=== PATIENT | female | born 1960 | race Caucasian/White ===

== ENCOUNTER 2019-05-20 13:18 | Outpatient (CLI) | payer BC ==
[2019-05-20 13:56] LABS: BASOPHILS # (AUTO) 0.1 10^3/uL (0.0-0.1); BASOPHILS % (AUTO) 0.6 %; EOSINOPHILS % (AUTO) 0.2 %; HGB - HEMOGLOBIN 10.7 g/dL (12.0-16.0); LYMPHOCYTES # (AUTO) 0.9 10^3/uL (1.5-3.5); LYMPHOCYTES % (AUTO) 6.8 %; MEAN CORPUSCULAR HEMOGLOBIN 30.5 pg (27.0-31.0); MEAN CORPUSCULAR VOLUME 95.2 fL (81.0-99.0); MEAN PLATELET VOLUME 10.6 fL (7.9-10.8); MONOCYTES # (AUTO) 1.3 10^3/uL (0.0-1.0); MONOCYTES % (AUTO) 9.9 %; NEUTROPHILS # (AUTO) 10.2 10^3/uL (1.5-6.6); NEUTROPHILS % (AUTO) 79.2 %; PLT - PLATELET COUNT 312 10^3/uL (130-450); RED BLOOD COUNT 3.51 10^6/uL (4.20-5.40); RED CELL DISTRIBUTION WIDTH 17.8 % (12.0-15.0); WHITE BLOOD COUNT 12.9 x10^3/uL (4.8-10.8)
[2019-05-20 14:13] LABS: ALBUMIN 1.9 g/dL (3.2-5.5); ALBUMIN/GLOBULIN RATIO 0.5 (1.0-2.2); BILIRUBIN,TOTAL 0.3 mg/dL (0.2-1.0); CALCIUM 8.3 mg/dL (8.5-10.3); CREATININE 0.6 mg/dL (0.4-1.0); CRP - C-REACTIVE PROTEIN 13.2 mg/dL (0-1.0); MAGNESIUM 2.1 mg/dL (1.7-2.8); PHOSPHORUS 3.6 mg/dL (2.5-4.6); TOTAL PROTEIN 6.1 g/dL (6.7-8.2)
[2019-05-20 15:01] LABS: FREE T4 (FREE THYROXINE) 1.02 ng/dL (0.58-1.64)
[2019-05-23 16:44] LABS: COPPER 114 mcg/dL (70-175)
== END 2019-05-20 13:19 | disposition home or self-care (01) ==
LOC: LAB 13:18
PROVIDERS: ATTEND Family Medicine
DX: C56.9 Malignant neoplasm of unspecified ovary (principal); E43 Unspecified severe protein-calorie malnutrition; R18.0 Malignant ascites; K56.699 Other intestinal obstruction unspecified as to partial versus complete obstruction
CPT/HCPCS: 36415; 80053; 82390; 82525; 83735; 84100; 84134; 84255; 84439; 84443; 84478; 84630; 85025; 86140

== ENCOUNTER 2019-05-21 11:19 | Outpatient (CLI) | payer BC ==
--- NOTE | 2019-05-21 13:59 | CONSULTATION NOTE ---
Palliative Care Consultation - Referral Referring Provider: Dr. Hakan Copeland Time of Visit: [id number] Referral setting: [facility] [place] Referral Reason: Met Ovarian CA/Symptom Management/Goals of care - Information Sources Records reviewed: Previous records reviewed History/Review of Systems obtained from: Patient Exam limitations: No limitations - History of Present Illness Brief History of Present Illness: This is a 56-year-old woman who had a series of unfortunate events, and presents with a complicated history. She reports 6 to 8 months of severe abdominal distention and ascites, from her description. She was following up on the because she had significant pressure she had attributed it to her liver and "womens' hormones" or menopause. She was to be getting a work-up, and ended up being admitted to [facility] 03/21/2019 with numbness and pain of her left hand and forearm and diagnosed with an arterial thrombus. During her hospitalization she initially had an embolectomy on 03/21/2019, but later with ongoing complications ended up with a amputation. During her work-up, a CT scan was done and showed a large 18 cm mass in her lower pelvis, with extensive abdominal carcinomatosis, for which she was started on neoadjuvant treatment. Her first dose was on 04/16/2019 with dose dense carboplatinum and Taxol. Unfortunately she has had ongoing symptoms regarding her bowel obstruction from abdominal carcinomatosis, recurrent ascites, as well as a mass compressing mid right ureter causing some hydronephrosis. She was started on TPN, with the goal to improve her nutritional status, if she were to have a good response to her treatment, she would be reassessed for optimal surgical debulking. Patient has had ongoing anemia, fluctuating electrolyte abnormalities, being modified by TPN on a regular basis. She has high symptom burden, in the context of severe vomiting, she has only vague nausea. She attributes this to her obstructive symptoms, but does vomit every few hours is triggered by talking, and worsens with increasing ascites. She was most recently tapped on 05/18, because of her ongoing nausea and vomiting which is been persistent over the last several weeks, they kept her overnight. She reports at that point in time they did remove 3 L, but have removed as much as 8 or 9. She is scheduled for a paracentesis again on 05/30. The hope is the chemotherapy will work and this will decrease her need for this which has been weekly. She reports she has tried multiple different antiemetics without any effect. It is more mechanical in nature, easily triggered. She reports she is vomits up pills most times, sometimes she keeps things down for a few hours. She has had maybe 1 or 2 good days in the last 2 weeks. She reports a sore scratchy mouth, phlegm going down her throat. And on examination does have oral candidiasis.The other thing that she has a severe GERD, reports this sometimes triggers her vomiting. On discharge she says she was "given a medication" prescription and that was $6200. I see liquid carafate on RX pharmacy list, I am guessing that is what it was. Given that she is recurrently vomiting, will see if famotidine it can be added to her TPN for comfort as is vomiting up medications. Patient does get short of breath, this worsens with increasing ascites. She modifies her activity with this. She denies any choking or aspiration risk at this point in time. She does have diminished breath sounds. Patient's pain actually is mostly in her amputated arm, she has a phantom limb pain, does intermittently use the gabapentin. If it is too bad she will use the hydromorphone, she is only using maybe 1 or 2 at the most in a day. She says it does take the edge off, but is not severely problematic. She reports that hydromorphone really does not help with abdominal pressure and discomfort, we did discuss other options as far as comfort at this point in time she is not interested in adding more medications nor opioids. Patient's past medical history includes malnutrition, alcoholic cirrhosis, left hand amputation, alcohol abuse history with remission. She also has a history of smoking, has given that up recently. 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 Shane does have a business he needs to attend to, but has been the primary caregiver her biggest worry is about his caregiver fatigue and needing increased assistance. He is managing the TPN, and helping her with appointments. There is a [place] PES application in place, as well as her understanding SSI her application has been done. 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 Family History - Family History Family History: Mother: , Cancer (unknown origin/ at 38), Father: Alive and Well, Sister: Alive and Well, Brother: Alive and Well Medications/Allergies - Medications Home Medications: Ambulatory Orders Medication Instructions Recorded Confirmed Furosemide [Lasix] 40 mg PO DAILY 05/20/19 05/22/19 Gabapentin [Gralise] 300 mg PO TID PRN MDD not using 05/20/19 05/22/19 consistently HYDROmorphone [Dilaudid] 2 - 4 mg PO TID PRN 05/20/19 05/22/19 Rivaroxaban [Xarelto] 15 mg PO DAILY 05/20/19 05/22/19 Spironolactone [Aldactone] 50 mg PO DAILY 05/20/19 05/22/19 Fluconazole [Diflucan] 100 mg PO .Q2 DAY MDD 3 tabs 05/22/19 05/22/19 Naloxone HCl [Narcan] 1 spray ELIAN DAILY PRN 05/22/19 05/22/19 Nystatin 5 ml PO QID MDD 14 days 05/22/19 05/22/19 Ondansetron [Ondansetron Odt] 4 mg PO Q6HR PRN 05/22/19 05/22/19 Prochlorperazine Maleate 10 mg PO Q6HR PRN 05/22/19 05/22/19 polyethylene glycoL 3350 [Miralax] 17 gm PO DAILY 05/22/19 05/22/19 - Allergies Allergies/Adverse Reactions: Allergies Allergy/AdvReac Type Severity Reaction Status Date / Time No Known Drug Allergies Allergy Verified 05/23/19 05:32 Review of Systems - Constitutional Constitutional: reports: Fatigue, Other. denies: Fever, Chills - Ears, Nose & Throat Ears, Nose & Throat: reports: Sore throat, Hoarseness, Dental decay, Dry mouth - Cardiovascular Cardiovascular: reports: Edema, Lightheadedness, Exertional dyspnea, Decr. exercise tolerance, Orthopnea - Respiratory Respiratory: reports: SOB at rest, SOB with exertion. denies: Cough, Wheezing - Gastrointestinal Gastrointestinal: reports: Abdominal pain, Abdominal distention, Diarrhea, Vomiting (see HPI), Reflux/heartburn (severe; nothing has helped), Bloating, Other (attempts clear liquids and jello) - Genitourinary Genitourinary: reports: Frequency - Musculoskeletal Musculoskeletal: reports: Muscle aches, Stiffness, Muscle weakness, Transfer issues - Integumentary Integumentary: reports: Pruritis, Dryness, Nail changes, Hair changes - Neurological Neurological: reports: General weakness, Dizziness - Psychiatric Psychiatric: reports: Depression, Anxiety - Hematologic/Lymphatic Hematologic/Lymphatic: reports: Anemia, Recurrent infections (hosp record has spontaneious bacterial peritonitis in hx) - All Other Systems All Other Systems: reports: Reviewed and negative Physical Exam - Vital Signs Temperature: 36.5 C Pulse Rate: 122 Respiratory Rate: 20 Blood Pressure: 153/63 - Physical Exam General Appearance: positive: Alert, Mild distress (frequent vomiting through infusion) Eyes Bilateral: positive: Normal inspection, No scleral icterus ENT: positive: Oral lesions (white patches on tongue and buccally) Neck: positive: Trachea midline Cardiovascular: positive: Tachycardia Respiratory: positive: Diminished in bases. negative: No respiratory distress (mild breathlessness with conversation), Wheezes Abdomen: positive: Tenderness, Distended, Taut, Obese Skin: positive: Pallor, Dryness, Pressure wound (documented Stage II by ) Extremities: positive: Pedal edema (3-4+ bilat to knees) Neurologic/Psychiatric: positive: Oriented x3, Weakness, Depressed mood/affect, Flat affect Palliative Care - POLST Patient has POLST: No Pain: Pain unchanged, Location (phantom pain left arm amputation; generlized pressure and discomfort abdominal pressure) Tiredness/Fatigue: Severe (7-10) Drowsiness/Sedation: Severe (7-10) Nausea: Moderate (4-6), With vomiting Anorexia: Severe (7-10) Dyspnea: Moderate (4-6) Depression: Mild (1-3) Anxiety: Severe (7-10) Feelings of wellbeing/Perceived Quality of Life: Poor, Worsening Sleep: Variable sleep pattern Performance Status: Patient reports significant functional decline. Is sedentary spends most of her time in the bed, she can ambulate short distances in her trailer. Otherwise dependent on the wheelchair because of dyspnea and lower extremity weakness. She has been seen by home health, currently too weak to take on any activity program, hoping her symptoms to be better controlled to progress. - Palliative Care Discussion: Patient does seem to understand the seriousness of her illness, she feels like it had just been her arm she would have "just had to deal". She is to receive aggressive treatment, with the hopes to control the ascites, and that she would be a candidate in the future for debulking surgery. Her goal is hoping for overall improved health, currently she has severely high symptom burden, and is very much worried about her friend and partner Shane. She says they have done her advanced care documents, when she was seen at [facility]. She does not have access to them but did make Shane her D POA. [place] she [place] but is able to provide some support. It has been overwhelming, particularly with the prolonged hospitalization, she has been in and out of ED's, and has found all this not only to be physically but emotionally exhausting. Reviewed the role of palliative care, unfortunately her partner is not able to be present for the visit today. Results - Lab Results Lab results reviewed: Yes Lab and Imaging Results: Patient still presents with anemia at 10.7 hemoglobin 30.3 0.4 hematocrit; albumin is 1.9; prealbumin 11; WBC elevated at 12.9 Impression and Recommendations - Palliative Care Impression: This is a 58-year-old woman who presents with advanced ovarian cancer mullerian origin, currently not a surgical candidate. She will be receiving weekly chemotherapy, and continue support with TPN. She presents with high symptom burden of nausea, vomiting, pain, fatigue, anxiety, recurrent ascites, and poor quality of life. Palliative care to provide support for pain and symptom management and anticipatory guidance. Recommendations/Counseling Done: 1. Nausea and vomiting. This is multifactorial in origin, most specific to her bowel obstruction, worsening with worsening ascites. Patient does attempt to take sips of fluid, and clear liquid diet, with often resulting vomiting. She is vomiting up most her pills consistently, and identifies her GERD as most problematic. Call to [facility], they can add famotidine to her solution, this will provide her the most consistent relief. She has tried multiple antiemetics with no improvement. At this point goal is hoping for the best in the context with decreased tumor burden, will have less obstructive symptoms and ascites will improve. 2. Oral candidiasis. This is adding also to source of discomfort. Ordered nystatin 5 mils 4 times daily, swish and swallow if she is able to. Also given the severity, will initiate Diflucan 1 tab every other day x3 doses. Patient does have financial stressors, reviewed cost, will order at [facility]. 3. Severe protein calorie malnutrition. Patient presents with albumin of 1.9 and prealbumin of 11. She is working with [facility] for ongoing correction and monitoring of her TPN. Her partner Shane is doing the TPN. Patient does have a PIC, does present with 1 line only flushing not able to draw. 4. Pain. This is multi generated, most acute pain is phantom pain of left amputation. She has been only intermittently using the gabapentin. Does have a sharp shooting nature to it, discussed most likely not getting of benefit if using as needed, she does get some relief from the intermittent hydromorphone. She reports her abdomen does provide a lot of pressure and discomfort, but is not relieved with opioid. She is quite resistant to considering any kind of other opioid management, patient would most likely benefit from fentanyl patch, will explore at next appointment, also has financial limitations. 5. Small bowel obstruction. Patient alternates between diarrhea and constipation, she does use intermittent MiraLAX if needed. She has not taken anything to slow down her bowels. Patient somewhat vague and unclear pattern, will continue to explore if needs further intervention. 6. Generalized weakness. Patient is significantly deconditioned, presents with muscle wasting, lower extremity edema, many barriers in the context of improving her underlying functional status. She does have home health PT/OT ordered, will continue to monitor. 7. Advanced care planning. Unfortunately her partner is not available, will continue to explore with him goals of care. She reports they have done [place] P[place] application, which would indeed help the stress of the situation, to have a caregiver available. She says she is also do an SSRI, she will also be seen by the home health /palliative care pediatric social worker. Time Spent: 75 minutes with greater than 50% of this done in counseling regarding pain and symptom management, setting of rapport, patient presents with significant complicated history as well as disease burden, will meet weekly as will be receiving treatment in clinic on a weekly basis
== END 2019-05-21 11:20 | disposition home or self-care (01) ==
LOC: PC 11:19
PROVIDERS: ATTEND Nurse Practitioner Adult Health
DX: Z51.5 Encounter for palliative care (principal); R11.2 Nausea with vomiting, unspecified; K21.9 Gastro-esophageal reflux disease without esophagitis; R06.02 Shortness of breath; E43 Unspecified severe protein-calorie malnutrition; G89.3 Neoplasm related pain (acute) (chronic); F41.9 Anxiety disorder, unspecified; B37.0 Candidal stomatitis; G54.6 Phantom limb syndrome with pain; D64.9 Anemia, unspecified; R53.1 Weakness; R18.8 Other ascites; C78.6 Secondary malignant neoplasm of retroperitoneum and peritoneum; C56.9 Malignant neoplasm of unspecified ovary; Z79.899 Other long term (current) drug therapy; Z79.891 Long term (current) use of opiate analgesic; Z95.828 Presence of other vascular implants and grafts; Z89.202 Acquired absence of left upper limb, unspecified level
CPT/HCPCS: 99205

== ENCOUNTER 2019-05-23 10:40 | Inpatient (IN) | payer BC, MEDICAID ==
[2019-05-23] MEDS ORDERED: ONDANSETRON 4 MG/2 ML VIAL IVP STA (11:16)
[2019-05-23] MEDS ORDERED: SODIUM CHLORIDE 0.9% 1,000 ML IV ONE ×2 (11:16→14:25)
[2019-05-23] MEDS ORDERED: PROMETHAZINE INJ 25 MG in SODIUM CHLORIDE 0.9% 50 ML IV STA (12:09)
[2019-05-23 12:11] LABS: BASOPHILS # (AUTO) 0.1 10^3/uL (0.0-0.1); BASOPHILS % (AUTO) 0.4 %; EOSINOPHILS % (AUTO) 0.1 %; LYMPHOCYTES # (AUTO) 0.7 10^3/uL (1.5-3.5); LYMPHOCYTES % (AUTO) 3.3 %; MEAN CORPUSCULAR HEMOGLOBIN 30.6 pg (27.0-31.0); MEAN CORPUSCULAR HGB CONC 32.1 g/dL (32.0-36.0); MEAN CORPUSCULAR VOLUME 95.4 fL (81.0-99.0); MEAN PLATELET VOLUME 11.4 fL (7.9-10.8); MONOCYTES # (AUTO) 0.4 10^3/uL (0.0-1.0); NEUTROPHILS # (AUTO) 18.3 10^3/uL (1.5-6.6); NEUTROPHILS % (AUTO) 92.4 %; PLT - PLATELET COUNT 215 10^3/uL (130-450); RED BLOOD COUNT 3.27 10^6/uL (4.20-5.40); RED CELL DISTRIBUTION WIDTH 17.3 % (12.0-15.0); WHITE BLOOD COUNT 19.8 x10^3/uL (4.8-10.8)
[2019-05-23] MEDS ORDERED: HYDROmorphone 1 MG/ML CARPUJECT IVP STA (12:11)
--- NOTE | 2019-05-23 12:13 | ED Physician Documentation ---
History of Present Illness - Stated complaint Stated Complaint: VOMITING - Chief complaint Chief Complaint: Abd Pain - History obtained from History obtained from: Patient, Family - History of Present Illness Timing: How many weeks ago (1) - Additonal information Additional information: Patient comes emergency department complaining of ongoing vomiting for the last approximately 1 week. Patient is currently being treated for stage IV metastatic ovarian cancer and has been on chemotherapy every Monday. She states she does not know if the vomiting is related to the chemo or to the pressure in her abdomen from her ascites and liver metastases. She states that she feels somewhat nauseated, but mostly, she just feels as though the food will not stay in her stomach. She denies any fevers or chills. No new cough. Patient states she does feel somewhat short of breath and that this is not unusual for her. She denies any chest pain.She states that she tries to drink water, but that it does not stay down and she is worried about being dehydrated.She states she normally takes Phenergan at home for the nausea and this sometimes works. She also takes Dilaudid for her pain.Patient has ongoing abdominal pain associated with her cancer.This is about at baseline today. Review of Systems Ten Systems: 10 systems reviewed and negative Constitutional: reports: Reviewed and negative Eyes: reports: Reviewed and negative Ears: reports: Reviewed and negative Nose: reports: Reviewed and negative Throat: reports: Reviewed and negative Cardiac: reports: Reviewed and negative Respiratory: reports: Reviewed and negative GI: reports: Abdominal Pain, Nausea, Vomiting : reports: Reviewed and negative Skin: reports: Reviewed and negative Musculoskeletal: reports: Reviewed and negative Neurologic: reports: Reviewed and negative Psychiatric: reports: Reviewed and negative Endocrine: reports: Reviewed and negative Immunocompromised: reports: Reviewed and negative PD PAST MEDICAL HISTORY - Past Medical History Past Medical History: Yes Cardiovascular: Other Respiratory: Shortness of breath Neuro: None GI: Cirrhosis, 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 Psych: Depression, Anxiety Musculoskeletal: Fatigue - Past Surgical History Past Surgical History: Yes - Present Medications Home Medications: Ambulatory Orders Medication Instructions Recorded Confirmed HYDROmorphone [Dilaudid] 2 - 4 mg PO TID PRN 05/20/19 05/23/19 Naloxone HCl [Narcan] 1 spray ELIAN DAILY PRN 05/22/19 05/23/19 Nystatin 5 ml PO QID MDD 14 days 05/22/19 05/23/19 Ondansetron [Ondansetron Odt] 4 mg PO Q6HR PRN 05/22/19 05/23/19 Prochlorperazine Maleate 10 mg PO Q6HR PRN 05/22/19 05/23/19 polyethylene glycoL 3350 [Miralax] 17 gm PO DAILY PRN 05/22/19 05/23/19 Famotidine [Heartburn Prevention] 20 mg PO BID 05/23/19 05/23/19 Furosemide 40 mg PO DAILY 05/23/19 05/23/19 Gabapentin 300 mg PO TID PRN 05/23/19 05/23/19 Rivaroxaban [Xarelto] 15 mg PO .[id number] 05/23/19 05/23/19 Rivaroxaban [Xarelto] 20 mg PO DAILY 05/23/19 05/23/19 Spironolactone [Aldactone] 50 mg PO DAILY 05/23/19 05/23/19 - Allergies Allergies/Adverse Reactions: Allergies Allergy/AdvReac Type Severity Reaction Status Date / Time No Known Drug Allergies Allergy Verified 05/23/19 10:54 - Social History Does the pt smoke?: No Smoking Status: Never smoker - Immunizations Immunizations are current?: Yes - POLST Patient has POLST: No PD ED PE NORMAL - Vitals Vital signs reviewed: Yes - General General: Alert and oriented X 3, No acute distress, Other (Patient appears chronically ill and is pale.) - HEENT HEENT: Atraumatic, PERRL, EOMI - Neck Neck: Supple, no meningeal sign - Cardiac Cardiac: RRR, No murmur - Respiratory Respiratory: Clear bilaterally - Abdomen Abdomen: Soft, Non tender, Other (Patient has distention and moderate diffuse tenderness throughout her abdomen.) - Back Back: No CVA TTP - Derm Derm: Warm and dry - Extremities Extremities: No deformity - Neuro Neuro: Alert and oriented X 3, 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1 RDW 17.3 H Plt Count 215 MPV 11.4 H Neut # (Auto) 18.3 H Lymph # (Auto) 0.7 L [place] # (Auto) 0.4 Eos # (Auto) 0.0 Baso # (Auto) 0.1 Absolute Nucleated RBC 0.02 Nucleated RBC % 0.1 Sodium 141 Potassium 4.1 Chloride 102 Carbon Dioxide 25 Anion Gap 14.0 H BUN 38 H Creatinine 0.6 Estimated GFR (MDRD) 103 Glucose 121 H Calcium 8.1 L Phosphorus 5.2 H Magnesium 2.0 Total Bilirubin 0.6 AST 24 ALT 17 Alkaline Phosphatase 140 H Total Protein 5.5 L Albumin 1.7 L Globulin 3.8 Albumin/Globulin Ratio 0.4 L Lipase 20 L PD MEDICAL DECISION MAKING - ED course Complexity details: reviewed old records, reviewed results, re-evaluated patient, considered differential, d/w patient, d/w family ED course: Patient was evaluated in the emergency department with laboratory studies. She was given IV fluids, Phenergan, and Dilaudid for symptomatic management.The patient was found to be feeling somewhat better, though still somewhat nauseated. She had notBeen able to hold her medications down at home, and BUN was found to be elevated despite a normal creatinine. I felt the patient is likely dehydrated and needed to get control of her nausea before being able to go back home. I spoke with Dr. George, who agreed to admit the patient to her service. The patient had stated her preference for admission and she and family were very pleased with this plan. Patient received a total of 2 L of IV fluid in the emergency department but at the time of transfer to the floor had not yet been able to urinate. I did consider potential infection, though no specific source was identified, and patient was afebrile here. Departure - Departure Disposition: [address] [facility] DC/Xfer Clinical Impression: Vomiting, Abdominal pain, Metastatic malignant neoplasm to ovary Discharge Date/Time: 05/23/19 16:20
[2019-05-23] MEDS ORDERED: PROMETHAZINE 25 MG/1 ML VIAL IV STA (12:22)
[2019-05-23 12:25] LABS: ALBUMIN 1.7 g/dL (3.2-5.5); ALBUMIN/GLOBULIN RATIO 0.4 (1.0-2.2); BILIRUBIN,TOTAL 0.6 mg/dL (0.2-1.0); CALCIUM 8.1 mg/dL (8.5-10.3); CREATININE 0.6 mg/dL (0.4-1.0); PHOSPHORUS 5.2 mg/dL (2.5-4.6); TOTAL PROTEIN 5.5 g/dL (6.7-8.2)
--- NOTE | 2019-05-23 15:59 | HISTORY & PHYSICAL EXAMINATION ---
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 The patient was brought to the ED via EMS after her home health nurse was unable to get a blood pressure and for uncontrolled vomiting which has been for at least one week. Labs show an elevated WBC count of 19.8, H/H of 10/31.2, BUN 38, creatinine of 0.6, glucose 121, phosphorus 5.2, total protein 5.5, albumin 1.7, lipase 20, without any other abnormalities. Vital signs show HR 120s, B/P 92/67, temp 36.3 C, room air. The patient complains of vomiting up bile, sore throat as if something is stuck in her throat, intermittent headaches, soreness to her buttocks, shortness of breath, and slight dizziness. She denies chest pain, bleeding, confusion, or rashes. History - Past Medical History Cardiovascular: reports: Hypertension, Murmur Respiratory: reports: COPD, Shortness of breath Neuro: reports: Headaches, Peripheral neuropathy, Tremors Endocrine/Autoimmune: reports: None GI: reports: GERD, Cirrhosis ASSISTANT ENGINEER: reports: Ovarian cancer : reports: None HEENT: reports: Chronic vision loss, Chronic sinusitis Psych: reports: Depression, Anxiety Musculoskeletal: reports: Fatigue Derm: reports: None MRSA Hx?: No - Past Surgical History Ortho: reports: Amputation, Other (left hand and wrist amputation) - Family & Social History Family History: Mother: , Cancer (unknown origin/ at 38), Father: Alive and Well, Sister: Alive and Well, Brother: Alive and Well Living arrangement: At home Living Situation: With spouse/s.o. Social History Notes: Patient lives with her significant other, Shane. 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 No longer works. She used tobacco from age [age], alcoholism, stopped 5 years ago, denies illicit drug use. She wishes to be a DNR. - Substance History Use: Uses substance without health or social issues: NONE Abuse: Recurrent use of substance despite neg consequences: NONE Dependence: Experiences withdrawal or developed tolerances: NONE - POLST Patient has POLST: No POLST Status: DNR Meds/Allgy - Home Medications Home Medications: Ambulatory Orders Medication Instructions Recorded Confirmed HYDROmorphone [Dilaudid] 2 - 4 mg PO TID PRN 05/20/19 05/23/19 Naloxone HCl [Narcan] 1 spray ELIAN DAILY PRN 05/22/19 05/23/19 Nystatin 5 ml PO QID MDD 14 days 05/22/19 05/23/19 Ondansetron [Ondansetron Odt] 4 mg PO Q6HR PRN 05/22/19 05/23/19 Prochlorperazine Maleate 10 mg PO Q6HR PRN 05/22/19 05/23/19 polyethylene glycoL 3350 [Miralax] 17 gm PO DAILY PRN 05/22/19 05/23/19 Famotidine [Heartburn Prevention] 20 mg PO BID 05/23/19 05/23/19 Furosemide 40 mg PO DAILY 05/23/19 05/23/19 Gabapentin 300 mg PO TID PRN 05/23/19 05/23/19 Rivaroxaban [Xarelto] 15 mg PO .[id number] 05/23/19 05/23/19 Rivaroxaban [Xarelto] 20 mg PO DAILY 05/23/19 05/23/19 Spironolactone [Aldactone] 50 mg PO DAILY 05/23/19 05/23/19 - Allergies Allergies/Adverse Reactions: Allergies Allergy/AdvReac Type Severity Reaction Status Date / Time No Known Drug Allergies Allergy Verified 05/23/19 10:54 Review of Systems - Constitutional Constitutional: reports: Fatigue, Weakness, Poor appetite, Diaphoresis, Weight gain - Ears, Nose & Throat Ears, Nose & Throat: reports: Tinnitus, Postnasal drainage, Sore throat, Hoarseness - Cardiovascular Cariovascular: reports: Palpitations, Edema, Lightheadedness, Decr. exercise tolerance, Orthopnea - Respiratory Respiratory: reports: Cough, Orthopnea, SOB at rest, SOB with exertion - Gastrointestinal Gastrointestinal: reports: Abdominal pain, Change in bowel habits, Nausea, Vomiting, Bile emesis, Reflux/heartburn, Bloating, Poor appetite - Genitourinary Genitourinary: reports: Frequency - Musculoskeletal Musculoskeletal: reports: Muscle aches, Stiffness, Limited range of motion, Mus loyd weakness, Joint swelling - Integumentary Integumentary: reports: Lesions, Dryness, Pigment changes (slightly jaundice) - Neurological Neurological: reports: General weakness, Dizziness, Numbness, Memory problems, Pre-existing deficit, Abnormal gait, Slurred speech - Psychiatric Psychiatric: reports: Depression, Anxiety - Hematologic/Lymphatic Hematologic/Lymphatic: reports: Anemia, Bruising, Bleeding tendencies - All Other Systems All Other Systems: reports: Reviewed and negative Prior Level of Functionality: Stands up, lives independently, no falls, no longer drives. Exam - Vital Signs Reviewed Vital Signs: Yes Vital Signs: Vital Signs x48h Temp Pulse Resp BP Pulse Ox 05/23/19 14:40 133 H 18 121/85 H 96 05/23/19 12:53 122 H 18 110/74 97 05/23/19 12:08 124 H 24 92/67 100 05/23/19 11:47 127 H 22 113/87 H 05/23/19 10:54 36.5 C 135 H 18 100/49 L 98 - Physical Exam General Appearance: positive: Alert, Moderate distress, Anxious Eyes Bilateral: positive: No lid inflammation ENT: positive: Pharyngeal erythema, Oral lesions, Dry mucous membranes Neck: positive: Trachea midline, Stiff neck Respiratory: positive: Chest non-tender, No respiratory distress, Rhonchi Cardiovascular: positive: Regular rate & rhythm, No gallop, Tachycardia, JVD present, Systolic murmur, Decreased pulse(s) Peripheral Pulses: positive: 1+ Abdomen: positive: Guarding, Rebound, Hepatomegaly, Abnml bowel sounds, Other (tight, firm, tender) Back: positive: CVA tenderness (R), CVA tenderness (L) Skin: positive: No rash, Warm, Dry, Other (mild jaundice) Extremities: positive: Pedal edema (pitting to BLEs) Neurologic/Psychiatric: positive: Oriented x3, CN's nml (2-12), Weakness, Sensory loss, Slurred/abnml speech (difficult to speak clearly due to nausea with vomiting), Depressed mood/affect Reflexes: Bicep (R): 3+, Bicep (L): 3+ Conclusion/Plan - Problem List (1) Intractable nausea and vomiting Conclusion/Plan: -Status post SBO, required an NG tube at [facility] -Thought to be due to abdominal carcinomatosis -No abdominal imaging while in the ED, consider if this is ongoing -Treating with Zofran, Promethazine IV, getting her TPN tonight -Offer IV lorazepam for nausea -Routine labs GERD -Patient complains of burning in her esophagus from all the vomiting -Was prescribed sucralfate, PPI and H2 vernell while at [facility] -Continue when taking PO, IV protonix while here Metastatic [place] cancer [place] [facility] [place]Treated with carboplatin and Taxol -Follow ups with Dr. Scott after the 3rd chemo cycle -If chemo goes well, may be a candidate for surgery Severe protein calorie malnutrition -TPN via PICC with home health nursing -Nutrition consult currently helping out with providing tonights dose while in the hospital -Routine labs Chronic anticoagulation -Xarelto was started prior to discharge from [facility] -Not tolerating PO, starting therapeutic Lovenox at 80 mg BID -Will continue here, hopefully she can tolerate since she has been vomiting Liver cirrhosis from alcoholism -Patient notes that she had abdominal swelling since before finding out about her cancer, but thought it was just part of getting older -Paracentesis was ~ 6 days ago, 3L off -Takes spironolactone, Lasix at home, now on hold for gentle IV fluids Below the elbow amputation -Presented on 03/21/2019 to [facility] with left hand ischemia -Status post embolectomy x2, but had ongoing ischemic issues -Surgical removal of limb on 03/28/2019 -Hypercoagulability likely due to high-grade ovarian cancer with malignant ascities -On exam today, skin looks healed, no redness - Lab Results Lab results reviewed: Yes Vic Bones: 05/24/19 04:15 05/24/19 05:10 Core Measures - Anticipated LOS I expect patient to be DC'd or transferred within 96 hours.: Yes - DVT/VTE - Prophylaxis VTE/DVT Device ordered at admit?: Yes VTE/DVT Prophylaxis med ordered at admit?: No Not Ordered - Medical Reason: Contraindicated - Stroke - Rehab Assessment Rehab services assessment to be ordered?: Yes - AMI - Statin at Admit Aspirin Prescribed on Admit: No Not Ordered - Medical Reason: Contraindicated
--- NOTE | 2019-05-23 16:22 | PHARMACY PROGRESS NOTE ---
- Best Possible Medication History Admit Date and Time: 05/23/19 1523 Processed by: Pharmacy Medication History completed: Yes Patient Interview: Completed Secondary Source(s): Physician records, Pharmacy records As the person ultimately responsible for medication therapy, providers are able to order a medication from an existing home medication list in [facility] via the "Reconcile Routine" prior to Confirmation of that medication by customer support assistant. Such practice is discouraged except when the physician, in their clinical judgment, deems that a medical need exists for a medication without regard to previous use.
[2019-05-23] MEDS ORDERED: GABAPENTIN 300 MG CAPSULE PO PRN (17:02)
[2019-05-23] MEDS: ONDANSETRON 4 MG/2 ML VIAL IVP PRN (17:03)
[2019-05-23] MEDS ORDERED: PROMETHAZINE INJ 25 MG in SODIUM CHLORIDE 0.9% 50 ML IV PRN (18:00)
[2019-05-23] MEDS: METOPROLOL 5 MG/5 ML VIAL IVP SCH ×2 (18:46→18:53)
[2019-05-23] MEDS: FAT EMULSION 20% 250 ML IV SCH (19:18)
[2019-05-23] MEDS: TPN (CLINIMIX E 5/15) 2,000 ML with MULTIVITAMIN 10 ML, TRACE ELEMENTS V CONC 1 ML IV SCH ×3 (19:18)
[2019-05-23] MEDS: SODIUM CHLORIDE FLUSH 0.9% 10 ML SYRINGE IVP SCH (19:19)
[2019-05-23 19:39] LABS: BILIRUBIN,URINE NEGATIVE (NEGATIVE); GLUCOSE, URINE (UA) NEGATIVE (NEGATIVE); KETONES,URINE (UA) NEGATIVE (NEGATIVE); LEUKOCYTE ESTERASE, URINE NEGATIVE (NEGATIVE); NITRITE,URINE NEGATIVE (NEGATIVE); OCCULT BLOOD,URINE NEGATIVE (NEGATIVE); PROTEIN,URINE TRACE mg/dL (NEGATIVE); UROBILINOGEN,URINE 0.2 (NORMAL) E.U./dL (NORMAL)
[2019-05-23 19:46] LABS: CLARITY,URINE CLEAR (CLEAR)
[2019-05-23] MEDS: PANTOPRAZOLE 40 MG VIAL IVP SCH (19:56)
[2019-05-23] MEDS: ENOXAPARIN 80 MG/0.8 ML SYRINGE SUBQ SCH (22:14)
[2019-05-23] MEDS: FAMOTIDINE 20 MG TABLET PO SCH (22:14)
[2019-05-23] MEDS: LORazepam 2 MG/ML VIAL IVP PRN (22:19)
[2019-05-24] MEDS: METOPROLOL 5 MG/5 ML VIAL IVP SCH ×3 (01:11→13:44)
[2019-05-24] MEDS: SODIUM CHLORIDE FLUSH 0.9% 10 ML SYRINGE IVP SCH ×3 (01:25→17:12)
[2019-05-24] MEDS: LORazepam 2 MG/ML VIAL IVP PRN ×5 (01:50→23:09)
[2019-05-24 04:44] LABS: BASOPHILS # (AUTO) 0.1 10^3/uL (0.0-0.1); BASOPHILS % (AUTO) 0.4 %; EOSINOPHILS % (AUTO) 0.1 %; LYMPHOCYTES # (AUTO) 0.7 10^3/uL (1.5-3.5); LYMPHOCYTES % (AUTO) 4.2 %; MEAN CORPUSCULAR HEMOGLOBIN 30.8 pg (27.0-31.0); MEAN CORPUSCULAR VOLUME 96.2 fL (81.0-99.0); MEAN PLATELET VOLUME 11.8 fL (7.9-10.8); MONOCYTES # (AUTO) 0.2 10^3/uL (0.0-1.0); MONOCYTES % (AUTO) 1.2 %; NEUTROPHILS # (AUTO) 15.7 10^3/uL (1.5-6.6); PLT - PLATELET COUNT 183 10^3/uL (130-450); RED BLOOD COUNT 2.92 10^6/uL (4.20-5.40); RED CELL DISTRIBUTION WIDTH 17.2 % (12.0-15.0); WHITE BLOOD COUNT 16.8 x10^3/uL (4.8-10.8)
[2019-05-24 05:29] LABS: ALBUMIN 1.5 g/dL (3.2-5.5); ALBUMIN/GLOBULIN RATIO 0.5 (1.0-2.2); BILIRUBIN,TOTAL 0.3 mg/dL (0.2-1.0); CALCIUM 7.4 mg/dL (8.5-10.3); CREATININE 0.7 mg/dL (0.4-1.0); TOTAL PROTEIN 4.8 g/dL (6.7-8.2)
[2019-05-24] MEDS ORDERED: ALBUMIN 25% 12.5 GM/50 ML VIAL IV STA (06:49)
[2019-05-24] MEDS ORDERED: SENNA 8.6 MG TABLET PO SCH (09:00)
[2019-05-24] MEDS ORDERED: NON FORMULARY MED (Rivaroxaban [Xarelto] 20 MG) PO SCH (09:00)
[2019-05-24] MEDS: PANTOPRAZOLE 40 MG VIAL IVP SCH ×2 (09:10→21:09)
[2019-05-24] MEDS: DIGOXIN 500 MCG/2 ML AMP IVP SCH ×3 (09:10→20:06)
[2019-05-24] MEDS: FAMOTIDINE 20 MG TABLET PO SCH (09:11)
[2019-05-24] MEDS: ONDANSETRON 4 MG/2 ML VIAL IVP PRN (09:11)
[2019-05-24] MEDS: ENOXAPARIN 80 MG/0.8 ML SYRINGE SUBQ SCH ×2 (09:11→21:10)
--- NOTE | 2019-05-24 11:13 | PROVIDER PROGRESS NOTE ---
Subjective - Prog Note Date Prog Note Date: 05/24/19 Prog Note Time: 11:13 - Subjective Pt reports feeling: No change Subjective: Liana's sister, Jeanette came for a visit and was given a medical update today. Reasons to transport to [facility] would be patient preference, and if an urgent need for a paracentesis would arise. Earlier this morning, the patient requested that she stay here to make it easier for her significant other to visit. Liana understands the gravity of her illness. She is having a difficult time staying comfortable in bed since she has profound orthopnea given her enlarged abdomen. She states that her belly gets way bigger than this before she needs a paracentesis. Her main complaint remains that her throat is very sore and she feels like she has a clump in her throat. She continues to throw up without much of a break. She denies chest pain, but has shortness of breath related to her enlarged abdomen which does not allow for much lung space for breathing. Current Medications - Current Medications Current Medications: Active Medications: Digoxin (Lanoxin Inj) 250 mcg IVP Q6H ROSAMARIA Enoxaparin Sodium (Lovenox) 80 mg SUBQ BID ROSAMARIA Famotidine (Pepcid) 20 mg IVP BID ROSAMARIA Promethazine HCl 25 mg/ Sodium (Chloride) 51 mls @ 100 mls/hr IV Q6H PRN Multivitamins 10 ml/ Chromium/Copper/Manganese/Seleni/Zn 1 ml/ Amino Ac/Electrol/Dextrose /Calcium 2,011 mls @ 83 mls/hr IV Q24H ROSAMARIA; Protocol Fat Emulsion Intravenous (Intralipid 20%) 250 mls @ 21 mls/hr IV Q24H ROSAMARIA Fluconazole (Diflucan 200 Mg/100 Ml) 100 mls @ 100 mls/hr IV DAILY ROSAMARIA Lorazepam Ativan Inj 0.5 mg IVP Q2H PRN Metoprolol Tartrate (Lopressor Inj) 5 mg IVP Q6HR PRN Ondansetron HCl (Zofran Inj) 4 mg IVP Q4HR PRN Pantoprazole Sodium (Protonix) 40 mg IVP BID ROSAMARIA NS 500 mL x1 bolus HOME meds: HYDROmorphone [Dilaudid] 2 - 4 mg PO TID PRN 05/20/19 Naloxone HCl [Narcan] 1 spray ELIAN DAILY PRN 05/22/19 Nystatin 5 ml PO QID MDD 14 days 05/22/19 Ondansetron [Ondansetron Odt] 4 mg PO Q6HR PRN 05/22/19 Prochlorperazine Maleate 10 mg PO Q6HR PRN 05/22/19 polyethylene glycoL 3350 [Miralax] 17 gm PO DAILY PRN 05/22/19 Famotidine [Heartburn Prevention] 20 mg PO BID 05/23/19 Furosemide 40 mg PO DAILY 05/23/19 Gabapentin 300 mg PO TID PRN 05/23/19 Rivaroxaban [Xarelto] 15 mg PO .[id number] 05/23/19 Rivaroxaban [Xarelto] 20 mg PO DAILY 05/23/19 Spironolactone [Aldactone] 50 mg PO DAILY 05/23/19 Objective - Vital Signs/Intake & Output Reviewed Vital Signs: Yes Vital Signs: Vital Signs x48h Temp Pulse Pulse Resp BP BP Pulse Ox 05/24/19 09:10 126 H 05/24/19 07:46 36.5 C 123 H 20 108/62 97 05/24/19 06:38 87/59 L 05/24/19 06:30 123 H 87/59 L 05/24/19 06:24 36.4 C L 119 H 18 99 05/24/19 05:50 119 H 99/75 05/24/19 05:32 118 H 99/64 05/24/19 05:27 117 H 88/59 L 05/24/19 05:17 120 H 91/61 05/24/19 03:50 36.4 C L 124 H 18 96/72 99 Intake & Output: Intake & Output 05/21/19 05/22/19 05/23/19 05/24/19 23:59 23:59 23:59 23:59 Intake Total 2838.067 677.9 Output Total 1450 350 Balance 1388.067 327.9 - Objective General Appearance: positive: Alert, Severe distress, Lethargic Eyes Bilateral: positive: Other (dark circles under eyes, eye sockets are sunken in.) Eyes: OU Scleral icterus ENT: positive: Pharyngeal erythema, Dry mucous membranes Neck: positive: Trachea midline, Stiff neck Respiratory: positive: Chest non-tender, No respiratory distress, Other (coarse crackles, bilaterally) Cardiovascular: positive: Regular rate & rhythm, Tachycardia, JVD present, Systolic murmur, Decreased pulse(s) Peripheral Pulses: 1+ Radial (R), 1+ Radial (L) Abdomen: positive: Guarding, Hepatomegaly, Abnml bowel sounds, Other (tight, firm abdomen) Back: positive: Nml inspection Skin: positive: No rash, Warm, Dry, Diaphoresis (at times), Decubitus (see chart, bilateral butt cheeks), Other (jaundice, bronze toned) Extremities: positive: Pedal edema (pitting edema to BLEs), Joint swelling Neurologic/Psychiatric: positive: Oriented x3, Weakness, Sensory loss, Slurred/abnml speech, Depressed mood/affect - Lab Results Fish Bones: 05/24/19 04:15 05/24/19 05:10 Other Labs: Lab Results x24hrs 05/24/19 05/24/19 05/24/19 Range/Units 06:25 05:10 04:15 WBC (4.8-10.8) x10^3/uL RBC (4.20-5.40) 10^6/uL Hgb (12.0-16.0) g/dL Hct (37.0-47.0) % MCV (81.0-99.0) fL MCH (27.0-31.0) pg MCHC (32.0-36.0) g/dL RDW (12.0-15.0) % Plt Count (130-450) 10^3/uL MPV (7.9-10.8) fL Neut # (Auto) (1.5-6.6) 10^3/uL Lymph # (Auto) (1.5-3.5) 10^3/uL Mora # (Auto) (0.0-1.0) 10^3/uL Eos # (Auto) (0.0-0.7) 10^3/uL Baso # (Auto) (0.0-0.1) 10^3/uL Absolute Nucleated RBC x10^3/uL Nucleated RBC % /100WBC Sodium 135 Cancelled (135-145) mmol/L Potassium 3.9 Cancelled (3.5-5.0) mmol/L Chloride 101 Cancelled (101-111) mmol/L Carbon Dioxide 22 Cancelled (21-32) mmol/L Anion Gap 12.0 Cancelled (6-13) BUN 34 H Cancelled (6-20) mg/dL Creatinine 0.7 Cancelled (0.4-1.0) mg/dL Estimated GFR (MDRD) 86 L Cancelled (>89) Glucose 161 H Cancelled (70-100) mg/dL POC Whole Bld Glucose 122 H (70 - 100) mg/dL Calcium 7.4 L Cancelled (8.5-10.3) mg/dL Phosphorus 5.0 H Cancelled (2.5-4.6) mg/dL Magnesium 2.0 Cancelled (1.7-2.8) mg/dL Total Bilirubin 0.3 Cancelled (0.2-1.0) mg/dL AST 20 Cancelled (10-42) IU/L ALT 16 Cancelled (10-60) IU/L Alkaline Phosphatase 125 H Cancelled (42-121) IU/L Total Protein 4.8 L Cancelled (6.7-8.2) g/dL Albumin 1.5 L Cancelled (3.2-5.5) g/dL Globulin 3.3 Cancelled (2.1-4.2) g/dL Albumin/Globulin Ratio 0.5 L Cancelled (1.0-2.2) Lipase (22-51) U/L Urine Color Urine Clarity (CLEAR) Urine pH (5.0-7.5) PH Ur Specific Raven (1.002-1.030) Urine Protein (NEGATIVE) mg/dL Urine Glucose (UA) (NEGATIVE) mg/dL Urine Ketones (NEGATIVE) mg/dL Urine Occult Blood (NEGATIVE) Urine Nitrite (NEGATIVE) Urine Bilirubin (NEGATIVE) Urine Urobilinogen (NORMAL) E.U./dL Ur Leukocyte Esterase (NEGATIVE) Ur Microscopic Review Urine Culture Comments 05/24/19 05/24/19 05/23/19 Range/Units 04:15 00:13 18:45 WBC 16.8 H (4.8-10.8) x10^3/uL RBC 2.92 L (4.20-5.40) 10^6/uL Hgb 9.0 L (12.0-16.0) g/dL Hct 28.1 L (37.0-47.0) % MCV 96.2 (81.0-99.0) fL MCH 30.8 (27.0-31.0) pg MCHC 32.0 (32.0-36.0) g/dL RDW 17.2 H (12.0-15.0) % Plt Count 183 (130-450) 10^3/uL MPV 11.8 H (7.9-10.8) fL Neut # (Auto) 15.7 H (1.5-6.6) 10^3/uL Lymph # (Auto) 0.7 L (1.5-3.5) 10^3/uL Mora # (Auto) 0.2 (0.0-1.0) 10^3/uL Eos # (Auto) 0.0 (0.0-0.7) 10^3/uL Baso # (Auto) 0.1 (0.0-0.1) 10^3/uL Absolute Nucleated RBC 0.00 x10^3/uL Nucleated RBC % 0.0 /100WBC Sodium (135-145) mmol/L Potassium (3.5-5.0) mmol/L Chloride (101-111) mmol/L Carbon Dioxide (21-32) mmol/L Anion Gap (6-13) BUN (6-20) mg/dL Creatinine (0.4-1.0) mg/dL Estimated GFR (MDRD) (>89) Glucose (70-100) mg/dL POC Whole Bld Glucose 119 H (70 - 100) mg/dL Calcium (8.5-10.3) mg/dL Phosphorus (2.5-4.6) mg/dL Magnesium (1.7-2.8) mg/dL Total Bilirubin (0.2-1.0) mg/dL AST (10-42) IU/L ALT (10-60) IU/L Alkaline Phosphatase (42-121) IU/L Total Protein (6.7-8.2) g/dL Albumin (3.2-5.5) g/dL Globulin (2.1-4.2) g/dL Albumin/Globulin Ratio (1.0-2.2) Lipase (22-51) U/L Urine Color YELLOW Urine Clarity CLEAR (CLEAR) Urine pH 6.0 (5.0-7.5) PH Ur Specific Raven 1.015 (1.002-1.030) Urine Protein TRACE (NEGATIVE) mg/dL Urine Glucose (UA) NEGATIVE (NEGATIVE) mg/dL Urine Ketones NEGATIVE (NEGATIVE) mg/dL Urine Occult Blood NEGATIVE (NEGATIVE) Urine Nitrite NEGATIVE (NEGATIVE) Urine Bilirubin NEGATIVE (NEGATIVE) Urine Urobilinogen 0.2 (NORMAL) (NORMAL) E.U./dL Ur Leukocyte Esterase NEGATIVE (NEGATIVE) Ur Microscopic Review NOT INDICATED Urine Culture Comments NOT INDICATED 05/23/19 05/23/19 05/23/19 Range/Units 17:59 12:03 12:03 WBC 19.8 H (4.8-10.8) x10^3/uL RBC 3.27 L (4.20-5.40) 10^6/uL Hgb 10.0 L (12.0-16.0) g/dL Hct 31.2 L (37.0-47.0) % MCV 95.4 (81.0-99.0) fL MCH 30.6 (27.0-31.0) pg MCHC 32.1 (32.0-36.0) g/dL RDW 17.3 H (12.0-15.0) % Plt Count 215 (130-450) 10^3/uL MPV 11.4 H (7.9-10.8) fL Neut # (Auto) 18.3 H (1.5-6.6) 10^3/uL Lymph # (Auto) 0.7 L (1.5-3.5) 10^3/uL Mora # (Auto) 0.4 (0.0-1.0) 10^3/uL Eos # (Auto) 0.0 (0.0-0.7) 10^3/uL Baso # (Auto) 0.1 (0.0-0.1) 10^3/uL Absolute Nucleated RBC 0.02 x10^3/uL Nucleated RBC % 0.1 /100WBC Sodium 141 (135-145) mmol/L Potassium 4.1 (3.5-5.0) mmol/L Chloride 102 (101-111) mmol/L Carbon Dioxide 25 (21-32) mmol/L Anion Gap 14.0 H (6-13) BUN 38 H (6-20) mg/dL Creatinine 0.6 (0.4-1.0) mg/dL Estimated GFR (MDRD) 103 (>89) Glucose 121 H (70-100) mg/dL POC Whole Bld Glucose 75 (70 - 100) mg/dL Calcium 8.1 L (8.5-10.3) mg/dL Phosphorus 5.2 H (2.5-4.6) mg/dL Magnesium 2.0 (1.7-2.8) mg/dL Total Bilirubin 0.6 (0.2-1.0) mg/dL AST 24 (10-42) IU/L ALT 17 (10-60) IU/L Alkaline Phosphatase 140 H (42-121) IU/L Total Protein 5.5 L (6.7-8.2) g/dL Albumin 1.7 L (3.2-5.5) g/dL Globulin 3.8 (2.1-4.2) g/dL Albumin/Globulin Ratio 0.4 L (1.0-2.2) Lipase 20 L (22-51) U/L Urine Color Urine Clarity (CLEAR) Urine pH (5.0-7.5) PH Ur Specific Raven (1.002-1.030) Urine Protein (NEGATIVE) mg/dL Urine Glucose (UA) (NEGATIVE) mg/dL Urine Ketones (NEGATIVE) mg/dL Urine Occult Blood (NEGATIVE) Urine Nitrite (NEGATIVE) Urine Bilirubin (NEGATIVE) Urine Urobilinogen (NORMAL) E.U./dL Ur Leukocyte Esterase (NEGATIVE) Ur Microscopic Review Urine Culture Comments ABX Reporting Has patient been on IV antibiotics over the past 48 hours?: Yes Assessment/Plan - Problem List (1) Intractable nausea and vomiting Impression: -Status post SBO, required an NG tube at [facility] -Thought to be due to abdominal carcinomatosis -No abdominal imaging while in the ED, one view abdominal x-ray today shows no obstruction -Treating with Zofran, Promethazine IV, getting her TPN continuous -Offer IV lorazepam for nausea -Routine labs Hypotension -Likely due to intravascular depletion, also tachycardia -Murmur heard on exam, echo is pending today -IV digoxin x3 today -Normal saline bolus 500 mL x1 -Patient had a liquid stool, emesis since admission -Monitor VS, Q2H until stable Normocytic anemia -Patient notes she has iron deficiency anemia -IV iron today, IM B12 injection as requested by patient -Patient denies any blood transfusions while at [facility], not opposed to blood transfusions if needed -Transfuse blood if hemoglobin is less than 7.0 -No obvious bleeding, continues on BID lovenox for full anticoagulation -Routine labs GERD -Patient complains of burning in her esophagus from all the vomiting -Was prescribed sucralfate, PPI and H2 vernell while at [facility] -Patient did not tack picker the sucralfate after discharge from [facility] due to very high $$$cost per Mindy Hickey -Now on both protonix and Pepcid IV -Continue meds, monitor for improvement Metastatic ovarian cancer -Dr. Copeland at Oncology [facility] [place] -Treated with carboplatin and Taxol -Follow ups with Dr. Scott after the 3rd chemo cycle -If chemo goes well, may be a candidate for surgery Severe protein calorie malnutrition -TPN via PICC with home health nursing -Nutrition consult to manage TPN while in this hospital -TPN with fat emolsion per dietitian, continuous -Routine labs Chronic anticoagulation -Xarelto was started prior to discharge from [facility] -Not tolerating PO, continues on therapeutic Lovenox at 80 mg BID -Will continue here, hopefully she can tolerate since she has been vomiting Liver cirrhosis from alcoholism -Patient notes that she had abdominal swelling since before finding out about her cancer, but thought it was just part of getting older -Paracentesis was ~ 7 days ago, 3L off -Patient thinks she has another paracentesis next week -Takes spironolactone, Lasix at home, now on hold for hypotension Below the elbow amputation -Presented on 03/21/2019 to [facility] with left hand ischemia -Status post embolectomy x2, but had ongoing ischemic issues -Surgical removal of limb on 03/28/2019 -Hypercoagulability likely due to high-grade ovarian cancer with malignant ascities -On exam today, skin looks healed, no redness
[2019-05-24] MEDS ORDERED: CYANOCOBALAMIN 1,000 MCG/ML VIAL IM ONE (12:00)
[2019-05-24] MEDS ORDERED: FERRIC GLUCONATE 125 MG in SODIUM CHLORIDE 0.9% 100ML 100 ML IV ONE (12:30)
[2019-05-24] MEDS: FAMOTIDINE 20 MG/2 ML VIAL IVP SCH ×2 (12:59→21:10)
[2019-05-24] MEDS: SODIUM CHLORIDE FLUSH 0.9% 10 ML SYRINGE IVP PRN ×2 (12:59→21:10)
[2019-05-24] MEDS: FLUCONAZOLE 200 MG/100 ML 100 ML IV SCH (13:16)
--- NOTE | 2019-05-24 13:34 | XRAY Report ---
Reason: SBO, nausea, vomiting, pain Procedure Date: 05/24/2019 Accession Number: [id number] / [id number] Procedure: XR - Abdomen 1 View X-Ray CPT Code: 95679 Final Report FULL RESULT: EXAM: ABDOMEN RADIOGRAPHY EXAM DATE: 05/24/2019 11:58 AM. CLINICAL HISTORY: SBO, nausea, vomiting, pain. COMPARISON: None. TECHNIQUE: Supine AP view x3. FINDINGS: The study is mildly underpenetrated. Bowel Gas Pattern: Gas in the stomach without abnormal distention. Small amount of gas scattered in small bowel without abnormal distention. Small amount of gas scattered in the colon without abnormal distention. No pneumatosis or portal venous gas. Other: None. IMPRESSION: Nonobstructive bowel gas pattern. RADIA
[2019-05-24] MEDS ORDERED: SODIUM CHLORIDE 0.9% 500 ML IV ONE (13:48)
[2019-05-24] MEDS ORDERED: METOPROLOL 5 MG/5 ML VIAL IVP PRN (14:13)
[2019-05-24] MEDS: ALBUMIN 25% 12.5 GM/50 ML VIAL IV SCH (17:01)
[2019-05-24] MEDS: MIDODRINE 2.5 MG TABLET PO SCH (17:12)
[2019-05-24] MEDS: TPN (CLINIMIX E 5/15) 2,000 ML with MULTIVITAMIN 10 ML, TRACE ELEMENTS V CONC 1 ML IV SCH ×3 (19:13)
[2019-05-24] MEDS: FAT EMULSION 20% 250 ML IV SCH (19:13)
[2019-05-24] MEDS: cefTRIAXone 2 GM in SODIUM CHLORIDE 0.9% MINIBAG 100 ML IV SCH (20:58)
[2019-05-24] MEDS ORDERED: MORPHINE 2 MG/ML CARPUJECT IVP STA (22:41)
[2019-05-25] MEDS: ALBUMIN 25% 12.5 GM/50 ML VIAL IV SCH ×3 (00:20→12:27)
[2019-05-25] MEDS: SODIUM CHLORIDE FLUSH 0.9% 10 ML SYRINGE IVP SCH ×4 (01:11→23:59)
[2019-05-25] MEDS: DIGOXIN 500 MCG/2 ML AMP IVP SCH ×3 (02:24→14:49)
[2019-05-25] MEDS: SODIUM CHLORIDE FLUSH 0.9% 10 ML SYRINGE IVP PRN ×8 (02:25→19:50)
[2019-05-25 06:15] LABS: BASOPHILS % (AUTO) 0.4 %; EOSINOPHILS % (AUTO) 0.2 %; HGB - HEMOGLOBIN 8.8 g/dL (12.0-16.0); LYMPHOCYTES # (AUTO) 0.6 10^3/uL (1.5-3.5); LYMPHOCYTES % (AUTO) 5.3 %; MEAN CORPUSCULAR HEMOGLOBIN 31.1 pg (27.0-31.0); MEAN CORPUSCULAR HGB CONC 33.1 g/dL (32.0-36.0); MEAN PLATELET VOLUME 11.8 fL (7.9-10.8); MONOCYTES # (AUTO) 0.1 10^3/uL (0.0-1.0); MONOCYTES % (AUTO) 1.1 %; NEUTROPHILS # (AUTO) 9.7 10^3/uL (1.5-6.6); NEUTROPHILS % (AUTO) 91.2 %; PLT - PLATELET COUNT 142 10^3/uL (130-450); RED BLOOD COUNT 2.83 10^6/uL (4.20-5.40); RED CELL DISTRIBUTION WIDTH 16.9 % (12.0-15.0); WHITE BLOOD COUNT 10.6 x10^3/uL (4.8-10.8)
[2019-05-25 06:32] LABS: ALBUMIN/GLOBULIN RATIO 0.6 (1.0-2.2); BILIRUBIN,TOTAL 0.3 mg/dL (0.2-1.0); CALCIUM 7.5 mg/dL (8.5-10.3); CREATININE 0.6 mg/dL (0.4-1.0); MAGNESIUM 2.1 mg/dL (1.7-2.8); TOTAL PROTEIN 5.4 g/dL (6.7-8.2)
[2019-05-25] MEDS: LORazepam 2 MG/ML VIAL IVP PRN ×5 (06:42→19:46)
[2019-05-25 06:51] LABS: INR 1.1 (0.8-1.2); PT - PROTHROMBIN TIME 12.9 secs (9.9-12.6)
[2019-05-25 07:03] LABS: CRP - C-REACTIVE PROTEIN 12.2 mg/dL (0-1.0); DIGOXIN 1.3 ng/mL
[2019-05-25] MEDS: FAMOTIDINE 20 MG/2 ML VIAL IVP SCH ×2 (08:34→20:29)
[2019-05-25] MEDS: ENOXAPARIN 80 MG/0.8 ML SYRINGE SUBQ SCH (08:34)
[2019-05-25] MEDS: MIDODRINE 2.5 MG TABLET PO SCH ×5 (08:34→22:26)
[2019-05-25] MEDS: FLUCONAZOLE 200 MG/100 ML 100 ML IV SCH (08:36)
[2019-05-25] MEDS: SODIUM CHLORIDE 0.9% 500 ML IV PRN ×2 (08:47→23:16)
[2019-05-25] MEDS ORDERED: METOPROLOL 5 MG/5 ML VIAL IVP SCH (09:00)
[2019-05-25] MEDS: PANTOPRAZOLE 40 MG VIAL IVP SCH ×2 (10:59→20:29)
--- NOTE | 2019-05-25 12:19 | PROVIDER PROGRESS NOTE ---
Subjective - Prog Note Date Prog Note Date: 05/25/19 Prog Note Time: 12:17 - Subjective Pt reports feeling: Improved Subjective: Liana continues to complain of low abdominal pain, continued nausea with bile emesis, intermittent dizziness and difficulty getting comfortable in the hospital bed with insomnia. Her significant other, Shane is a the bedside and states, he believes this is the worst Liana has felt since being diagnosed with her cancer in late February. The patient was updated with plans for an abdominal CT to evaluate if doing a paracentesis would be of benefit while she is in the hospital, or if there are other causes for all of her complications. Current Medications - Current Medications Current Medications: Active Medications: Digoxin (Lanoxin Inj) 250 mcg IVP Q6H [facility] Enoxaparin Sodium (Lovenox) 80 mg SUBQ BID [facility] Famotidine (Pepcid) 20 mg IVP BID [facility] Promethazine HCl 25 mg/ Sodium (Chloride) 51 mls @ 100 mls/hr IV Q6H PRN Multivitamins 10 ml/ Chromium/Copper/Manganese/Seleni/Zn 1 ml/ Amino Ac/Elect rol/Dextrose /Calcium 2,011 mls @ 83 mls/hr IV Q24H ROSAMARIA; Protocol Fat Emulsion Intravenous (Intralipid 20%) 250 mls @ 21 mls/hr IV Q24H [facility] Fluconazole (Diflucan 200 Mg/100 Ml) 100 mls @ 100 mls/hr IV DAILY [facility] Albumin Human (Albuminar-25) 12.5 gm in 50 mls @ 50 mls/hr IV Q6HR [facility] Ceftriaxone Sodium 2 gm/ (Sodium Chloride) 100 mls @ 200 mls/hr IV Q24H [facility] Sodium Chloride (Normal Saline 0.9%) 500 mls @ 0 mls/hr IV Q24H PRN Lorazepam (Ativan Inj (Vial)) 0.5 mg IVP Q2H PRN Metoprolol Tartrate (Lopressor Inj) 5 mg IVP Q6HR PRN Metoprolol Tartrate (Lopressor Inj) 2.5 mg IVP Q4HR [facility] Midodrine 5 mg PO QID [facility] Ondansetron HCl (Zofran Inj) 4 mg IVP Q4HR PRN Pantoprazole Sodium (Protonix) 40 mg IVP BID [facility] HOME meds: HYDROmorphone [Dilaudid] 2 - 4 mg PO TID PRN 05/20/19 Naloxone HCl [Narcan] 1 spray ELIAN DAILY PRN 05/22/19 Nystatin 5 ml PO QID MDD 14 days 05/22/19 Ondansetron [Ondansetron Odt] 4 mg PO Q6HR PRN 05/22/19 Prochlorperazine Maleate 10 mg PO Q6HR PRN 05/22/19 polyethylene glycoL 3350 [Miralax] 17 gm PO DAILY PRN 05/22/19 Famotidine [Heartburn Prevention] 20 mg PO BID 05/23/19 Furosemide 40 mg PO DAILY 05/23/19 Gabapentin 300 mg PO TID PRN 05/23/19 Rivaroxaban [Xarelto] 15 mg PO .[id number] 05/23/19 Rivaroxaban [Xarelto] 20 mg PO DAILY 05/23/19 Spironolactone [Aldactone] 50 mg PO DAILY 05/23/19 Objective - Vital Signs/Intake & Output Reviewed Vital Signs: Yes Vital Signs: Vital Signs x48h Temp Pulse Pulse Pulse Resp BP BP 05/25/19 11:45 121 H 96/62 05/25/19 11:30 117 H 101/56 L 05/25/19 11:25 116 H 101/62 05/25/19 11:22 113 H 96/62 05/25/19 11:15 109 H 103/60 05/25/19 11:10 108 H 100/62 05/25/19 11:00 125 H 110/67 05/25/19 10:59 123/73 05/25/19 08:40 36.6 C 127 H 22 128/69 05/25/19 08:32 124 H 05/25/19 05:00 36.5 C 127 H 18 102/84 H Pulse Ox 05/25/19 11:45 05/25/19 11:30 05/25/19 11:25 05/25/19 11:22 05/25/19 11:15 05/25/19 11:10 05/25/19 11:00 05/25/19 10:59 05/25/19 08:40 97 05/25/19 08:32 05/25/19 05:00 93 Intake & Output: Intake & Output 05/22/19 05/23/19 05/24/19 05/25/19 23:59 23:59 23:59 23:59 Intake Total 2838.067 3595.017 970 Output Total 1450 1630 Balance 5191.706 7025.017 970 - Objective General Appearance: positive: Alert, Moderate distress, Lethargic Eyes Bilateral: positive: No lid inflammation Eyes: OU Conjunctivae pale ENT: positive: Pharyngeal erythema, Oral lesions, Dry mucous membranes Neck: positive: Trachea midline, Stiff neck Respiratory: positive: Chest non-tender, No respiratory distress, Other (dim inished) Cardiovascular: positive: Regular rate & rhythm, No gallop, Tachycardia, JVD present, Systolic murmur, Decreased pulse(s) Peripheral Pulses: 1+ Radial (R), 1+ Radial (L) Abdomen: positive: Tenderness, Guarding, Hepatomegaly, Mass, Abnml bowel sounds, Other (firm, tympanic) Back: positive: Nml inspection Skin: positive: No rash, Warm, Dry, Other (bronze, jaundice toned) Extremities: positive: Pedal edema (pitting edema BLEs, abdominal edema), Joint swelling Neurologic/Psychiatric: positive: Oriented x3, CN's nml (2-12), Weakness, Sensory loss, Slurred/abnml speech (sluggish speech), Depressed mood/affect - Lab Results Fish Bones: 05/25/19 05:55 05/25/19 05:55 Other Labs: Lab Results x24hrs 05/25/19 05/25/19 05/25/19 Range/Units 05:55 05:55 05:55 WBC (4.8-10.8) x10^3/uL RBC (4.20-5.40) 10^6/uL Hgb (12.0-16.0) g/dL Hct (37.0-47.0) % MCV (81.0-99.0) fL MCH (27.0-31.0) pg MCHC (32.0-36.0) g/dL RDW (12.0-15.0) % Plt Count (130-450) 10^3/uL MPV (7.9-10.8) fL Neut # (Auto) (1.5-6.6) 10^3/uL Lymph # (Auto) (1.5-3.5) 10^3/uL Braxton # (Auto) (0.0-1.0) 10^3/uL Eos # (Auto) (0.0-0.7) 10^3/uL Baso # (Auto) (0.0-0.1) 10^3/uL Absolute Nucleated RBC x10^3/uL Nucleated RBC % /100WBC PT (9.9-12.6) secs INR (0.8-1.2) Sodium 134 L (135-145) mmol/L Potassium 3.5 (3.5-5.0) mmol/L Chloride 103 (101-111) mmol/L Carbon Dioxide 20 L (21-32) mmol/L Anion Gap 11.0 (6-13) BUN 30 H (6-20) mg/dL Creatinine 0.6 (0.4-1.0) mg/dL Estimated GFR (MDRD) 103 (>89) Glucose 131 H (70-100) mg/dL Lactic Acid 2.1 (0.5-2.2) mmol/L Calcium 7.5 L (8.5-10.3) mg/dL Phosphorus 4.0 (2.5-4.6) mg/dL Magnesium 2.1 (1.7-2.8) mg/dL Total Bilirubin 0.3 (0.2-1.0) mg/dL AST 22 (10-42) IU/L ALT 18 (10-60) IU/L Alkaline Phosphatase 138 H (42-121) IU/L C-Reactive Protein 12.2 H (0-1.0) mg/dL Total Protein 5.4 L (6.7-8.2) g/dL Albumin 2.0 L (3.2-5.5) g/dL Globulin 3.4 (2.1-4.2) g/dL Albumin/Globulin Ratio 0.6 L (1.0-2.2) Last Dose Date 05/25/19 Last Dose Time 223 Digoxin 1.3 ng/mL 05/25/19 05/25/19 Range/Units 05:55 05:55 WBC 10.6 (4.8-10.8) x10^3/uL RBC 2.83 L (4.20-5.40) 10^6/uL Hgb 8.8 L (12.0-16.0) g/dL Hct 26.6 L (37.0-47.0) % MCV 94.0 (81.0-99.0) fL MCH 31.1 H (27.0-31.0) pg MCHC 33.1 (32.0-36.0) g/dL RDW 16.9 H (12.0-15.0) % Plt Count 142 (130-450) 10^3/uL MPV 11.8 H (7.9-10.8) fL Neut # (Auto) 9.7 H (1.5-6.6) 10^3/uL Lymph # (Auto) 0.6 L (1.5-3.5) 10^3/uL Braxton # (Auto) 0.1 (0.0-1.0) 10^3/uL Eos # (Auto) 0.0 (0.0-0.7) 10^3/uL Baso # (Auto) 0.0 (0.0-0.1) 10^3/uL Absolute Nucleated RBC 0.00 x10^3/uL Nucleated RBC % 0.0 /100WBC PT 12.9 H (9.9-12.6) secs INR 1.1 (0.8-1.2) Sodium (135-145) mmol/L Potassium (3.5-5.0) mmol/L Chloride (101-111) mmol/L Carbon Dioxide (21-32) mmol/L Anion Gap (6-13) BUN (6-20) mg/dL Creatinine (0.4-1.0) mg/dL Estimated GFR (MDRD) (>89) Glucose (70-100) mg/dL Lactic Acid (0.5-2.2) mmol/L Calcium (8.5-10.3) mg/dL Phosphorus (2.5-4.6) mg/dL Magnesium (1.7-2.8) mg/dL Total Bilirubin (0.2-1.0) mg/dL AST (10-42) IU/L ALT (10-60) IU/L Alkaline Phosphatase (42-121) IU/L C-Reactive Protein (0-1.0) mg/dL Total Protein (6.7-8.2) g/dL Albumin (3.2-5.5) g/dL Globulin (2.1-4.2) g/dL Albumin/Globulin Ratio (1.0-2.2) Last Dose Date Last Dose Time Digoxin ng/mL ABX Reporting Has patient been on IV antibiotics over the past 48 hours?: Yes Assessment/Plan - Problem List (1) Intractable nausea and vomiting Impression: -Status post SBO, required an NG tube at [facility] -Thought to be due to abdominal carcinomatosis -No abdominal imaging while in the ED -Abdominal x-ray showed no bowel obstruction -Now getting abd/pel CT to evaluate for ascites, cause of N/V, obstruction -Treating with Zofran, Promethazine IV, getting her TPN continuous -Offer IV lorazepam for nausea -Routine labs Leukocytosis -WBC counts have been elevated since being admitted, discussed with [facility] Hospitalist -WBC 19.8, now 10.6 since starting antibiotics -Patient at a risk for SBP spontaneous bacterial peritonitis -Started on Rocephin 2G Q24 hours last PM Abdominal pain -Patient notes bilateral low abdominal pain, cramping, sharp, intermittent -Last had a paracentesis on 05/17 -Profound abdominal girth enlargement, tight skin, tenderness with palpation -Pain becomes worse when moving bowels Diarrhea -Between 2-5 episodes in 24 hours -Also leading to volume loss, electrolyte abnormalities -Await CT today Hypotension -Echo shows a normal EF, intravascular depletion -IV digoxin is ongoing -Digoxin level was 1.3 today -Patient had a liquid stool, emesis since admission, somewhat improved -Tolerating midodrine, increased to QID -Monitor VS, Q4H Normocytic anemia -Patient notes she has iron deficiency anemia -Status post IV iron, IM B12 injection on 05/24 -H/H trending down, now 8.8/26.6, likely influenced by fluid status -Patient denies any blood transfusions while at [facility], not opposed to blood transfusions if needed -Transfuse blood if hemoglobin is less than 7.0 -No obvious bleeding, continues on BID lovenox for full anticoagulation -Routine labs GERD -Patient complains of burning in her esophagus from all the vomiting -Was prescribed sucralfate, PPI and H2 vernell while at [facility] -Patient 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 Copeland at [facility] [place] -Treated with carboplatin and Taxol -Follow ups with Dr. Scott after the 3rd chemo cycle -If chemo goes well, may be a candidate for surgery Severe protein calorie malnutrition -TPN via PICC with home health nursing -Nutrition consult to manage TPN while in this hospital -TPN with fat emolsion per dietitian, continuous -Routine labs Chronic anticoagulation -Xarelto was started prior to discharge from [facility] -Not tolerating PO, continues on therapeutic Lovenox at 80 mg BID -Will continue here, hopefully she can tolerate since she has been vomiting Liver cirrhosis from alcoholism -Patient notes that she had abdominal swelling since before finding out about her cancer, but thought it was just part of getting older -Paracentesis was 04/16, 3L off -Patient thinks she has another paracentesis next week -Takes spironolactone, Lasix at home, now on hold for hypotension 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
[2019-05-25] MEDS: ONDANSETRON 4 MG/2 ML VIAL IVP PRN (12:30)
--- NOTE | 2019-05-25 14:34 | CT Report ---
Reason: abdominal pain, N/V, ascities Procedure Date: 05/25/2019 Accession Number: [id number] / [id number] Procedure: CT - Abdomen/Pelvis WO CPT Code: Final Report FULL RESULT: EXAM: CT ABDOMEN AND PELVIS without contrast EXAM DATE: 05/25/2019 01:09 PM. CLINICAL HISTORY: Abdominal pain, N/V, ascites. COMPARISONS: ABDOMEN 1 VIEW 05/24/2019 11:[address] of the abdomen and pelvis with contrast 05/16/2019, 03/23/2019. TECHNIQUE: Routine helical CT imaging was performed through the abdomen and pelvis. IV contrast: None. Enteric contrast: No. Reconstructions: Coronal and sagittal. In accordance with CT protocol optimization, one or more of the following dose reduction techniques were utilized for this exam: automated exposure control, adjustment of mA and/or KV based on patient size, or use of iterative reconstructive technique. FINDINGS: Lung Bases: There is a large right pleural effusion and small left pleural effusion. There is near complete compressive atelectasis of the right lower lobe and partial atelectasis of the right middle lobe. There is moderate compressive atelectasis at the base of the left lower lobe. Liver: Unremarkable noncontrast appearance. Gallbladder/Bile Ducts: Unremarkable. Spleen: Unremarkable. Pancreas: Unremarkable. Adrenal Glands: Unremarkable. Kidneys: There is mild dilatation of the right renal collecting system and right ureter. No left-sided hydronephrosis. No renal collecting system calculi bilaterally. Peritoneal Cavity/Bowel: There is a very large amount of free intraperitoneal fluid with low density consistent with ascites. The amount of fluid appears increased compared to 05/16/2019. Omental caking and mesenteric studding are present, as seen on prior exams. No dilated loops of small bowel. No abnormal colonic stool burden. There is a small amount of liquid stool and gas in the colon. The appendix is not well visualized. Pelvic Organs: There is a large heterogeneous hypodense mass in the midline pelvis extending superiorly into the abdomen. This is difficult to measure on this noncontrast exam as most of the mass is similar in density to the adjacent free fluid. The mass measures approximately 16.6 x 10.4 cm in the transverse plane (series 3 image 77). The mass is grossly similar compared to prior CTs on 05/16/2019 and 03/23/2019. The uterus and bladder are unremarkable. Vasculature: There is mild atherosclerotic calcification of the abdominal aorta. No aneurysms or other significant abnormality. Bones: No acute osseous abnormality or bone lesion. Other: None. IMPRESSION: 1. Large amount of ascites. This appears increased compared to the prior CT on 05/16/2019. Omental caking and mesenteric studding are present, as seen on prior exams, suspicious for malignant ascites. 2. Large heterogeneous hypodense mass in the pelvis extending superiorly into the abdomen. The mass is difficult to measure on this noncontrast exam due to the density being similar to the surrounding free fluid. The mass appears grossly similar compared to prior CTs. 3. No evidence of bowel obstruction. 4. Mild dilatation of the right renal collecting system and right ureter, similar to prior. No obstructing stone identified. 5. Large right pleural effusion and extensive right basilar atelectasis. There is a small left pleural effusion and moderate compressive atelectasis at the left lung base. RADIA
[2019-05-25] MEDS: METOPROLOL 5 MG/5 ML VIAL IVP SCH ×4 (14:52→23:58)
[2019-05-25] MEDS ORDERED: SODIUM CHLORIDE 0.9% 500 ML IV ONE (15:43)
[2019-05-25] MEDS ORDERED: ENOXAPARIN 80 MG/0.8 ML SYRINGE SUBQ SCH (19:02)
[2019-05-25] MEDS: TPN (CLINIMIX E 5/15) 2,000 ML with MULTIVITAMIN 10 ML, TRACE ELEMENTS V CONC 1 ML IV SCH ×3 (19:39)
[2019-05-25] MEDS: FAT EMULSION 20% 250 ML IV SCH (19:39)
[2019-05-25] MEDS: cefTRIAXone 2 GM in SODIUM CHLORIDE 0.9% MINIBAG 100 ML IV SCH (20:29)
[2019-05-26] MEDS: LORazepam 2 MG/ML VIAL IVP PRN ×4 (02:18→14:32)
[2019-05-26] MEDS: SODIUM CHLORIDE FLUSH 0.9% 10 ML SYRINGE IVP PRN ×6 (02:18→21:31)
[2019-05-26 05:02] LABS: BASOPHILS % (AUTO) 0.8 %; EOSINOPHILS % (AUTO) 0.2 %; HGB - HEMOGLOBIN 8.8 g/dL (12.0-16.0); LYMPHOCYTES % (AUTO) 6.1 %; MEAN CORPUSCULAR HEMOGLOBIN 29.5 pg (27.0-31.0); MEAN CORPUSCULAR HGB CONC 31.7 g/dL (32.0-36.0); MEAN CORPUSCULAR VOLUME 93.3 fL (81.0-99.0); MEAN PLATELET VOLUME 11.4 fL (7.9-10.8); MONOCYTES % (AUTO) 2.1 %; NEUTROPHILS % (AUTO) 88.8 %; PLT - PLATELET COUNT 127 10^3/uL (130-450); RED BLOOD COUNT 2.98 10^6/uL (4.20-5.40); RED CELL DISTRIBUTION WIDTH 16.7 % (12.0-15.0); WHITE BLOOD COUNT 8.8 x10^3/uL (4.8-10.8)
[2019-05-26] MEDS: METOPROLOL 5 MG/5 ML VIAL IVP SCH (05:13)
[2019-05-26 05:15] LABS: ALBUMIN/GLOBULIN RATIO 0.7 (1.0-2.2); BILIRUBIN,TOTAL 0.2 mg/dL (0.2-1.0); CALCIUM 7.3 mg/dL (8.5-10.3); CREATININE 0.6 mg/dL (0.4-1.0); MAGNESIUM 2.1 mg/dL (1.7-2.8); PHOSPHORUS 3.7 mg/dL (2.5-4.6); TOTAL PROTEIN 4.9 g/dL (6.7-8.2)
[2019-05-26 05:23] LABS: ABNORMAL LYMPHS % (MANUAL) 0 %
[2019-05-26 06:16] LABS: BAND NEUTROPHILS % (MANUAL) 5 %; LYMPHOCYTES # (MANUAL) 0.3 10^3/uL (1.5-3.5); LYMPHOCYTES % (MANUAL) 3 %; METAMYELOCYTES % (MANUAL) 1 %; MONOCYTES # (MANUAL) 0.3 10^3/uL (0.0-1.0)
[2019-05-26 06:17] LABS: RBC MORPHOLOGY (MULTIPLE) 1+ ANISOCYTOSIS (NORMAL)
[2019-05-26 06:18] LABS: DIFFERENTIAL COMMENT MANUAL DIFFERENTIAL; PLATELET ESTIMATE, MANUAL DECREASED (<130,000) (NORMAL); PLATELET MORPHOLOGY NORMAL APPEARANCE (NORMAL)
[2019-05-26 07:39] LABS: DIGOXIN 1.4 ng/mL
[2019-05-26] MEDS ORDERED: LIDOCAINE 1%-EPI 1:100000 30 ML MDV ID ONE (09:00)
--- NOTE | 2019-05-26 10:04 | POST OP PROGRESS NOTE ---
Subjective - General Admit Date: 05/25/19 Procedure Date: 05/26/19 Post Op Days: 1 Procedure Performed: Abdominal Paracentesis - Review of Systems Drain Output Description: dark yoana but clear ascitic fluid Approximate mls Output: 5000 All Other Systems: positive: Reviewed and negative - Other Other Information/Narrative: 58yo F with malignant ascites due to advanced ovarian cancer. She gets weekly paracentesis and is now quite uncomfortable due to her enlarged and full abdomen. CT shows ascitic fluid and omental caking with carcinomatosis. It also shows a right pleural effusion which will be addressed at another time. Pt is on therapeutic lovenox for a DVT which resulted in the loss of her arm and wa s the initial presentation of her cancer; this was held for the procedure. Informed consent reviewed and signed as pt has been recently given an anxiolytic. US is used to ensure a window in the RLQ which is the site of most of her taps. Lidocaine 1% with epinephrine is infiltrated and a small incision made with an 11 blade scalpel. The introducer needle is advanced under US guidance and the angiocatheter advanced once suction reveals clear dark yoana fluid. This is then connected to a vacuum sealed bottle but the negative pressure does not work. Several 60cc syringes are hand drawn and dumped while another bottle is readied. The remainder worked without issue and a total of 5L of fluid are removed. This was largely the total of the abdominal fluid but was adamant that we stop at 5L because, despite having drawn much more per OSH reports, he believes that a larger removal led to the amputation of her hand. Pt tolerated the procedure well and was breathing better at the conclusion. The catheter was withdrawn and a bandaid placed over the site.
[2019-05-26] MEDS: FAMOTIDINE 20 MG/2 ML VIAL IVP SCH ×2 (10:06→21:31)
[2019-05-26] MEDS: FLUCONAZOLE 200 MG/100 ML 100 ML IV SCH (10:06)
[2019-05-26] MEDS: DIGOXIN 500 MCG/2 ML AMP IVP SCH (10:06)
[2019-05-26] MEDS: PANTOPRAZOLE 40 MG VIAL IVP SCH ×2 (10:06→21:31)
[2019-05-26] MEDS: SUCRALFATE 1 GM/10 ML UDC PO SCH ×4 (10:24→21:32)
[2019-05-26] MEDS: MIDODRINE 2.5 MG TABLET PO SCH ×4 (10:35→21:32)
[2019-05-26] MEDS: SODIUM CHLORIDE FLUSH 0.9% 10 ML SYRINGE IVP SCH ×3 (10:35→23:53)
[2019-05-26] MEDS: ONDANSETRON 4 MG/2 ML VIAL IVP PRN (10:44)
[2019-05-26] MEDS: ALBUMIN 25% 12.5 GM/50 ML VIAL IV SCH (10:44)
[2019-05-26] MEDS: METOPROLOL SUCCINATE 25 MG TABLET PO SCH ×2 (13:01→18:18)
[2019-05-26] MEDS: SALIVA STIMULANT SPRAY 44.3 ML BOTTLE PO PRN (14:31)
[2019-05-26] MEDS: NYSTATIN 500000 UNITS/5 ML UDC PO SCH ×3 (16:25→21:49)
--- NOTE | 2019-05-26 18:15 | PROVIDER PROGRESS NOTE ---
Subjective - Prog Note Date Prog Note Date: 05/26/19 Prog Note Time: 18:06 - Subjective Pt reports feeling: Improved Subjective: Liana appears to be in more distress today, but has had such relief since her paracentesis. She mostly complains of a very dry mouth today and requests that we resume her Nystatin swish an swallow today. I have also added saliva spray. Her significant other has been by her side, and supportive. The patient does not feel that she would be okay at home, although has been tolerating her clear liquids today. She needs to be able to consume her necessary medications at home prior to discharge, which could be as early as tomorrow. Current Medications - Current Medications Current Medications: Active Medications: Digoxin (Lanoxin Inj) 250 mcg IVP DAILY [facility] Enoxaparin Sodium (Lovenox) 80 mg SUBQ BID [facility] Famotidine (Pepcid) 20 mg IVP BID [facility] Promethazine HCl 25 mg/ Sodium (Chloride) 51 mls @ 100 mls/hr IV Q6H PRN Multivitamins 10 ml/ Chromium/Copper/Manganese/Seleni/Zn 1 ml/ Amino Ac/Electrol/Dextrose /Calcium 2,011 mls @ 83 mls/hr IV Q24H [facility]AM[facility]IA; Protocol Fat Emulsion Intravenous (Intralipid 20%) 250 mls @ 21 mls/hr IV Q24H [facility] Fluconazole (Diflucan 200 Mg/100 Ml) 100 mls @ 100 mls/hr IV DAILY [facility] Ceftriaxone Sodium 2 gm/ (Sodium Chloride) 100 mls @ 200 mls/hr IV Q24H [facility] Albumin Human (Albuminar-25) 12.5 gm in 50 mls @ 50 mls/hr IV DAILY [facility] Lorazepam (Ativan Inj (Vial)) 0.5 mg IVP Q2H PRN Metoprolol Succinate (Toprol Xl) 25 mg PO BIDWM [facility] Metoprolol Tartrate (Lopressor Inj) 5 mg IVP Q6HR PRN Midodrine 5 mg PO QID [facility] Morphine Sulfate (Morphine (Carpuject)) 1 mg IVP Q2HR PRN Non-Formulary Medication (Spironolactone [Aldactone]) 50 mg PO DAILY [facility] Nystatin (Mycostatin) 5 ml PO QID [facility] Ondansetron HCl (Zofran Inj) 4 mg IVP Q4HR PRN Pantoprazole Sodium (Protonix) 40 mg IVP BID [facility] Saliva Substitute (Biotene Moisturizing Mouth Rowe) 2 sprays PO Q4H PRN Sucralfate (Carafate) 1 gm PO 0700,1100,1600,2200 [facility] HOME meds: HYDROmorphone [Dilaudid] 2 - 4 mg PO TID PRN 05/20/19 Naloxone HCl [Narcan] 1 spray ELIAN DAILY PRN 05/22/19 Nystatin 5 ml PO QID MDD 14 days 05/22/19 Ondansetron [Ondansetron Odt] 4 mg PO Q6HR PRN 05/22/19 Prochlorperazine Maleate 10 mg PO Q6HR PRN 05/22/19 polyethylene glycoL 3350 [Miralax] 17 gm PO DAILY PRN 05/22/19 Famotidine [Heartburn Prevention] 20 mg PO BID 05/23/19 Furosemide 40 mg PO DAILY 05/23/19 Gabapentin 300 mg PO TID PRN 05/23/19 Rivaroxaban [Xarelto] 15 mg PO .[id number] 05/23/19 Rivaroxaban [Xarelto] 20 mg PO DAILY 05/23/19 Spironolactone [Aldactone] 50 mg PO DAILY 05/23/19 Objective - Vital Signs/Intake & Output Reviewed Vital Signs: Yes Vital Signs: Vital Signs x48h Temp Pulse Pulse Resp BP Pulse Ox 05/26/19 16:21 36.6 C 116 H 20 99/50 L 97 05/26/19 14:30 36.8 C 120 H 24 91/50 L 97 05/26/19 12:31 36.7 C 124 H 38 H 99/61 98 05/26/19 10:06 128 H Intake & Output: Intake & Output 05/23/19 05/24/19 05/25/19 05/26/19 23:59 23:59 23:59 23:59 Intake Total 2838.067 3595.017 4585 1000 Output Total 1450 1630 5075 Balance 0054.462 3139.017 3348 -8015 - Objective General Appearance: positive: Alert, Moderate distress, Anxious, Lethargic Eyes Bilateral: positive: PERRL Eyes: OU Conjunctivae pale, OU Other (bilateral dark circles around eyes, eyes are sunken) ENT: positive: Pharyngeal erythema, Oral lesions, Dry mucous membranes Neck: positive: No JVD, Trachea midline, Stiff neck Respiratory: positive: Chest non-tender, No respiratory distress, Other (diminished, no wheezing) Cardiovascular: positive: No gallop, Tachycardia, Systolic murmur Peripheral Pulses: 1+ Radial (R), 1+ Radial (L) Abdomen: positive: Guarding, Hepatomegaly, Mass, Other (tympanic, firm, less shinny since paracentesis today) Skin: positive: No rash, Warm, Dry, Other (bronze, jaundice toned skin) Extremities: positive: Non-tender, Pedal edema (reduced from yesterday, barely pitting to BLEs, abdominal edema) Neurologic/Psychiatric: positive: Oriented x3, CN's nml (2-12), Disoriented to time, Weakness, Sensory loss, Depressed mood/affect (flat, appears exhausted, garbled speech due to dry mouth) Reflexes: Bicep (R): 2+, Bicep (L): 2+ - Lab Results Fish Bones: 05/26/19 04:45 05/26/19 04:45 Other Labs: Lab Results x24hrs 05/26/19 05/26/19 05/26/19 Range/Units 12:15 04:45 04:45 WBC (4.8-10.8) x10^3/uL RBC (4.20-5.40) 10^6/uL Hgb (12.0-16.0) g/dL Hct (37.0-47.0) % MCV (81.0-99.0) fL MCH (27.0-31.0) pg MCHC (32.0-36.0) g/dL RDW (12.0-15.0) % Plt Count (130-450) 10^3/uL MPV (7.9-10.8) fL Neut # (Auto) Lymph # (Auto) Williamson # (Auto) Eos # (Auto) Baso # (Auto) Absolute Nucleated RBC Total Counted Band Neuts % (Manual) (0 - 10) % Abnorm Lymph % (Manual) % Metamyelocytes % ( - 0) % Nucleated RBC % Neutrophils # (Manual) (1.5-6.6) 10^3/uL Lymphocytes # (Manual) (1.5-3.5) 10^3/uL Monocytes # (Manual) (0.0-1.0) 10^3/uL Eosinophils # (Manual) (0-0.7) 10^3/uL Basophils # (Manual) (0-0.1) 10^3/uL Differential Comment WBC Morphology (NORMAL) Platelet Estimate (NORMAL) Platelet Morphology (NORMAL) RBC Morph Micro Appear (NORMAL) Sodium (135-145) mmol/L Potassium (3.5-5.0) mmol/L Chloride (101-111) mmol/L Carbon Dioxide (21-32) mmol/L Anion Gap (6-13) BUN (6-20) mg/dL Creatinine (0.4-1.0) mg/dL Estimated GFR (MDRD) (>89) Glucose (70-100) mg/dL POC Whole Bld Glucose 133 H (70 - 100) mg/dL Lactic Acid 2.2 (0.5-2.2) mmol/L Calcium (8.5-10.3) mg/dL Phosphorus (2.5-4.6) mg/dL Magnesium (1.7-2.8) mg/dL Total Bilirubin (0.2-1.0) mg/dL AST (10-42) IU/L ALT (10-60) IU/L Alkaline Phosphatase (42-121) IU/L Ammonia (7-35) umol/L Total Protein (6.7-8.2) g/dL Albumin (3.2-5.5) g/dL Globulin (2.1-4.2) g/dL Albumin/Globulin Ratio (1.0-2.2) Last Dose Date UNKNOWN Last Dose Time UNKNOWN Digoxin 1.4 ng/mL 05/26/19 05/26/19 05/26/19 Range/Units 04:45 04:45 04:45 WBC 8.8 (4.8-10.8) x10^3/uL RBC 2.98 L (4.20-5.40) 10^6/uL Hgb 8.8 L (12.0-16.0) g/dL Hct 27.8 L (37.0-47.0) % MCV 93.3 (81.0-99.0) fL MCH 29.5 (27.0-31.0) pg MCHC 31.7 L (32.0-36.0) g/dL RDW 16.7 H (12.0-15.0) % Plt Count 127 L (130-450) 10^3/uL MPV 11.4 H (7.9-10.8) fL Neut # (Auto) Not Reportable Lymph # (Auto) Not Reportable Williamson # (Auto) Not Reportable Eos # (Auto) Not Reportable Baso # (Auto) Not Reportable Absolute Nucleated RBC Not Reportable Total Counted 100 Band Neuts % (Manual) 5 (0 - 10) % Abnorm Lymph % (Manual) 0 % Metamyelocytes % 1 H ( - 0) % Nucleated RBC % Not Reportable Neutrophils # (Manual) 8.2 H (1.5-6.6) 10^3/uL Lymphocytes # (Manual) 0.3 L (1.5-3.5) 10^3/uL Monocytes # (Manual) 0.3 (0.0-1.0) 10^3/uL Eosinophils # (Manual) 0.0 (0-0.7) 10^3/uL Basophils # (Manual) 0.0 (0-0.1) 10^3/uL Differential Comment MANUAL DIFFERENTIAL WBC Morphology NORMAL APPEARANCE (NORMAL) Platelet Estimate DECREASED (<130,000) (NORMAL) Platelet Morphology NORMAL APPEARANCE (NORMAL) RBC Morph Micro Appear 1+ ANISOCYTOSIS (NORMAL) Sodium 135 (135-145) mmol/L Potassium 3.5 (3.5-5.0) mmol/L Chloride 105 (101-111) mmol/L Carbon Dioxide 18 L (21-32) mmol/L Anion Gap 12.0 (6-13) BUN 29 H (6-20) mg/dL Creatinine 0.6 (0.4-1.0) mg/dL Estimated GFR (MDRD) 103 (>89) Glucose 145 H (70-100) mg/dL POC Whole Bld Glucose (70 - 100) mg/dL Lactic Acid (0.5-2.2) mmol/L Calcium 7.3 L (8.5-10.3) mg/dL Phosphorus 3.7 (2.5-4.6) mg/dL Magnesium 2.1 (1.7-2.8) mg/dL Total Bilirubin 0.2 (0.2-1.0) mg/dL AST 19 (10-42) IU/L ALT 16 (10-60) IU/L Alkaline Phosphatase 135 H (42-121) IU/L Ammonia 20.9 (7-35) umol/L Total Protein 4.9 L (6.7-8.2) g/dL Albumin 2.0 L (3.2-5.5) g/dL Globulin 2.9 (2.1-4.2) g/dL Albumin/Globulin Ratio 0.7 L (1.0-2.2) Last Dose Date Last Dose Time Digoxin ng/mL ABX Reporting Has patient been on IV antibiotics over the past 48 hours?: Yes Assessment/Plan - Problem List (1) Intractable nausea and vomiting Impression: -Status post SBO, required an NG tube at [facility] -Thought to be due to abdominal carcinomatosis -No abdominal imaging while in the ED -Abdominal x-ray showed no bowel obstruction -Now getting abd/pel CT to evaluate for ascites, cause of N/V, obstruction -Treating with Zofran, Promethazine IV, getting her TPN continuous -Offer IV lorazepam for nausea -Routine labs Esophagitis -Known erosive esophagitis since at least daily vomiting which has been prolonged -Previously had an NG tube, refuses on this admit -Thankfully, vomiting is minimal today -Resumed Nystatin swish and swallow per patient request -Also on IV diflucan Q24H Leukocytosis -WBC counts were elevated, now trending down to normal at 8.8 -Patient at a risk for SBP spontaneous bacterial peritonitis -Continues on Rocephin 2G Q24 hours Abdominal pain -Patient notes bilateral low abdominal pain, cramping, sharp, intermittent -Last had a paracentesis on 05/25 at the bedside with Dr. Hewitt (General surgery), 5L off -Profound abdominal girth enlargement, tight skin, tenderness with palpation, improved today -Pain becomes worse when moving bowels Diarrhea -None today -Also leading to volume loss, electrolyte abnormalities -Monitor Hypotension -Echo shows a normal EF, intravascular depletion -IV digoxin is ongoing, now daily -Digoxin level was 1.4 today -Patient had a liquid stool, emesis since admission, somewhat improved -Improved today, SBP 90-110's -Tolerating midodrine, increased to QID -Monitor VS, Q4H Normocytic anemia -Patient notes she has iron deficiency anemia -Status post IV iron, IM B12 injection on 05/24 -H/H trending down, now 8.8/26.6, likely influenced by fluid status -Patient denies any blood transfusions while at [facility], not opposed to blood transfusions if needed -Transfuse blood if hemoglobin is less than 7.0 -No obvious bleeding, continues on BID lovenox for full anticoagulation -Routine labs GERD -Patient complains of burning in her esophagus from all the vomiting -Was prescribed sucralfate, PPI and H2 vernell while at [facility] -Patient did not olive picker the sucralfate after discharge from [facility] due to very high $$$cost per Mindy Hickey -Continues on protonix and Pepcid IV -Started sucralfate since emesis is slowing down -Continue meds, monitor for improvement Metastatic ovarian cancer -Dr. Copeland at [facility] [place] -Treated with carboplatin and Taxol -Follow ups with Dr. Scott after the 3rd chemo cycle -Going to [facility] [place] oncology in the AM (Monday) to discuss case -If chemo goes well, may be a candidate for surgery Severe protein calorie malnutrition -TPN via PICC with home health nursing -Nutrition consult to manage TPN while in this hospital -TPN with fat emolsion per dietitian, continuous -Patient tolerating liquids today, may increase to soft diet in the AM -Routine labs Chronic anticoagulation -Xarelto was started prior to discharge from [facility] -Not tolerating PO, continues on therapeutic Lovenox at 80 mg BID -Will continue here, hopefully she can tolerate since she has been vomiting Liver cirrhosis from alcoholism -Ascites is NOT thought to be from liver, rather malignant -Patient notes that she had abdominal swelling since before finding out about her cancer, but thought it was just part of getting older -Paracentesis was 05/25, 5L off -Takes spironolactone, Lasix at home, now on hold for hypotension -Attempting to start in the AM Below the elbow amputation -Presented on 03/21/2019 to [facility] with left hand ischemia -Status post embolectomy x2, but had ongoing ischemic issues -Surgical removal of limb on 03/28/2019 -Hypercoagulability likely due to high-grade ovarian cancer with malignant ascites -Lovenox on a 12 hour hold for paracentesis 05/25 -On exam, skin looks healed, no redness
[2019-05-26] MEDS: FAT EMULSION 20% 250 ML IV SCH (19:19)
[2019-05-26] MEDS: TPN (CLINIMIX E 5/15) 2,000 ML with MULTIVITAMIN 10 ML, TRACE ELEMENTS V CONC 1 ML IV SCH ×3 (19:20)
[2019-05-26] MEDS: cefTRIAXone 2 GM in SODIUM CHLORIDE 0.9% MINIBAG 100 ML IV SCH (19:27)
[2019-05-26] MEDS: ENOXAPARIN 80 MG/0.8 ML SYRINGE SUBQ SCH (21:30)
[2019-05-27] MEDS: MORPHINE 2 MG/ML CARPUJECT IVP PRN ×4 (01:38→20:14)
[2019-05-27] MEDS: SODIUM CHLORIDE 0.9% 500 ML IV PRN (01:38)
[2019-05-27] MEDS: SODIUM CHLORIDE FLUSH 0.9% 10 ML SYRINGE IVP PRN ×2 (01:39→22:07)
[2019-05-27] MEDS: SALIVA STIMULANT SPRAY 44.3 ML BOTTLE PO PRN (01:42)
[2019-05-27] MEDS: ONDANSETRON 4 MG/2 ML VIAL IVP PRN ×2 (01:53→18:08)
[2019-05-27] MEDS: LORazepam 2 MG/ML VIAL IVP PRN ×5 (05:58→19:21)
[2019-05-27 06:10] LABS: BASOPHILS % (AUTO) 0.4 %; EOSINOPHILS % (AUTO) 0.1 %; HGB - HEMOGLOBIN 9.1 g/dL (12.0-16.0); LYMPHOCYTES # (AUTO) 0.6 10^3/uL (1.5-3.5); LYMPHOCYTES % (AUTO) 6.9 %; MEAN CORPUSCULAR HEMOGLOBIN 30.4 pg (27.0-31.0); MEAN CORPUSCULAR HGB CONC 32.7 g/dL (32.0-36.0); MEAN PLATELET VOLUME 12.8 fL (7.9-10.8); MONOCYTES # (AUTO) 0.3 10^3/uL (0.0-1.0); MONOCYTES % (AUTO) 3.3 %; NEUTROPHILS % (AUTO) 87.2 %; PLT - PLATELET COUNT 125 10^3/uL (130-450); RED BLOOD COUNT 2.99 10^6/uL (4.20-5.40); RED CELL DISTRIBUTION WIDTH 16.6 % (12.0-15.0); WHITE BLOOD COUNT 9.2 x10^3/uL (4.8-10.8)
[2019-05-27 06:30] LABS: ALBUMIN 1.8 g/dL (3.2-5.5); ALBUMIN/GLOBULIN RATIO 0.6 (1.0-2.2); BILIRUBIN,TOTAL 0.3 mg/dL (0.2-1.0); CALCIUM 7.3 mg/dL (8.5-10.3); CREATININE 0.7 mg/dL (0.4-1.0); CRP - C-REACTIVE PROTEIN 13.2 mg/dL (0-1.0); MAGNESIUM 2.1 mg/dL (1.7-2.8); PHOSPHORUS 3.4 mg/dL (2.5-4.6); TOTAL PROTEIN 4.6 g/dL (6.7-8.2)
[2019-05-27] MEDS: SUCRALFATE 1 GM/10 ML UDC PO SCH ×3 (06:42→16:22)
[2019-05-27] MEDS ORDERED: ALTEPLASE 2 MG VIAL IC ONE (08:29)
[2019-05-27] MEDS: FAMOTIDINE 20 MG/2 ML VIAL IVP SCH ×2 (08:47→21:59)
[2019-05-27] MEDS: SODIUM CHLORIDE FLUSH 0.9% 10 ML SYRINGE IVP SCH ×2 (08:47→21:16)
[2019-05-27] MEDS: ENOXAPARIN 80 MG/0.8 ML SYRINGE SUBQ SCH ×2 (08:47→21:59)
[2019-05-27] MEDS: PANTOPRAZOLE 40 MG VIAL IVP SCH ×2 (08:47→22:07)
[2019-05-27] MEDS: DIGOXIN 500 MCG/2 ML AMP IVP SCH (08:57)
[2019-05-27] MEDS ORDERED: SPIRONOLACTONE 25 MG TABLET PO SCH (09:00)
[2019-05-27] MEDS: ALBUMIN 25% 12.5 GM/50 ML VIAL IV SCH (09:03)
[2019-05-27] MEDS: FLUCONAZOLE 200 MG/100 ML 100 ML IV SCH (09:57)
[2019-05-27] MEDS: METOPROLOL SUCCINATE 25 MG TABLET PO SCH ×2 (10:36→18:02)
[2019-05-27] MEDS: NYSTATIN 500000 UNITS/5 ML UDC PO SCH ×4 (10:37→22:07)
[2019-05-27] MEDS: MIDODRINE 2.5 MG TABLET PO SCH ×4 (10:39→22:06)
[2019-05-27] MEDS ORDERED: WATER FOR INJECTION,STERILE 10 ML ONE (13:56)
[2019-05-27] MEDS ORDERED: ALTEPLASE 2 MG VIAL IC SCH ×3 (13:57→14:00)
[2019-05-27] MEDS ORDERED: SODIUM CHLORIDE 0.9% 500 ML IV ONE (14:37)
--- NOTE | 2019-05-27 17:05 | ONCOLOGY / HEMATOLOGY ---
DATE OF SERVICE: 05/27/2019 Physician: Hakan Copeland MD, PHD DIAGNOSES 1. Peritoneal carcinomatosis due to ovarian cancer since 02/2019. a. Ongoing weekly paracentesis. Positive cytology confirmation. Baseline CA-125 at 300. b. Neoadjuvant dose-dense carboplatin and Taxol since 04/16/2019. Cycle 2, day 8 was given on 05/21/2019. 2. Bowel obstruction and ongoing nausea, vomiting. TPN infusion at night since 02/2019. 3. 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 a. Xarelto for long-term 20 mg daily. 4. Malignant ascites. Ongoing high volume paracentesis. a. Lasix 40 mg and spironolactone 50 mg daily. 5. Anemia of chemotherapy effect and chronic illness. Electrolyte abnormalities due to poor nutritional status on TPN modifications by pharmacist. 6. Compromised functional status and frequent hospitalizations. HISTORY OF PRESENT ILLNESS: As dictated on 10/18/2019 for detailed history. I was asked to see the patient in the hospital while she is admitted again for declining condition, ongoing nausea, vomiting, weakness. She has been almost requiring hospitalization on a weekly basis. This time, she has been there since 05/24/2019. Did have under 5 liter paracentesis. Not getting out of bed due to weakness. Struggling with decision making regarding the future care plan. I was therefore called to see her to have further discussion. No fever, no chills. No skin rash. Rest of 10 systems reviewed and negative. PAST, FAMILY AND SOCIAL HISTORY: Tubal ligation. . No smoke. No drink. On disability. No contributing family history. Four children all over states. PHYSICAL EXAMINATION VITAL SIGNS: Tachypnea, tachycardia. Pleural effusion noted on the right hemithorax. ABDOMEN: Distended. EXTREMITIES: No edema since she has been bed bound. LABORATORY DATA: CT scan from 05/25/2019 reviewed with the patient. This scan was compared to previous CT abdomen and pelvis of 04/2019 and 03/15/2019. Large right pleural effusion. Large amount of free fluid, omental caking and mesenteric studding, no improvement or worsening. Large heterogeneous mass in the midline pelvis, similar to previous scans. WBC 9.2 K, HCT 27%, HGB 9.1 gram, platelet 125 K. ANC 8. Sodium 133, potassium 3.3, creatinine 0.7. Liver function tests are normal. CRP 13, albumin 1.8. ASSESSMENT AND PLAN 1. Advanced ovarian cancer. Physical condition declining. Recurrent hospitalization. CT scan did not show any signs of response indicating current chemotherapy is not reversing her disease course, yet it is making her weaker and weaker. At this point, I explained to her and her that further chemotherapy will less likely benefit her, but certainly could harm her. It is quite appropriate to consider comfort care and hospice. We did talk about alternative therapies such as carboplatin/gemcitabine or Doxil and Avastin. I mentioned to her that we had always given the best treatment first. If this regimen does not do the job, future chemotherapy will be less likely doing job. Further chemotherapy will have a high risk of hastening her , which is probably counted in a small number of weeks from now with her current condition. We did talk about possibility of resuming chemotherapy if her condition improves in the next few weeks, which I am very doubtful. We will hold off chemotherapy for this week and reassess her next week if she is still in the hospital or able to come to the clinic. 2. end of life discussion. This was carried out. She is now on palliative care. Patient was seen with Mindy GARCIA in patient's hospital room. cc: RADHA Hitchcock TD: 05/27/2019 16:37 MTDD
--- NOTE | 2019-05-27 17:44 | CONSULTATION NOTE ---
Palliative Care Follow Up - Referral Referring Provider: Aliza GARCIA Time of Visit: [id number] Referral setting: Hospitalized patient Referral Reason: Met Ovarian Cancer/FTT/Goals of Care - Information Sources Records reviewed: RN notes reviewed, Previous records reviewed History/Review of Systems obtained from: Patient, Family (s/o Shane present; met with Los sister;) Exam limitations: Clinical condition (patient exhausted having difficulty t alking with respiratory effort; dry mouth) - History of Present Illness Update Brief HPI Update: This is a 56-year-old woman who has had a series of ongoing unfortunate events, and presents with a complicated history. She has a known history of severe abdominal distention and ascites from her description of almost up to a year prior to her initial hospitalization. Had opportunity meet Shane today, to fill out the story little bit further. Patient was somewhat in denial, and not wanting to follow-up with physicians. 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 During her work-up with a CT scan was done and showed a large 18 cm mass in her lower pelvis with extensive abdominal carcinomatosis, for which she was started on neoadjuvant adjuvant treatment 04/16/2019. She was hospitalized in [place], for an extended period time, and continues to have recurrent malignant ascites, with ongoing high-volume paracentesis. She did transition home with TPN, and received another round of chemotherapy last Monday, on 05/21. She has been butt ving ongoing anemia, fluctuating electrolyte abnormalities, and has had difficulty with nausea and vomiting. This escalated after her chemotherapy, is unknown if this is attributed to her abdominal pressure as she has had taut and worsening ascites, originally thought she might have had a recurrent bowel obstruction. Patient also has had severe GERD, esophageal irritation with recurrent vomiting, and severe oral candidiasis identified on exam 05/21. Patient has had a CT scan on , unfortunately compared to previous CT abdominal and pelvis scans, shows a large right pleural effusion, and at that point a large amount of free fluid, omental caking and mesenteric studding with no improvement and most likely worsening. She appears quite frail, gaunt, upper extremity wasting and temporal wasting. She also has lower extremity edema, her abdomen despite being tapped yesterday for 4 L, is taut and uncomfortable. She is symptomatic from her right pleural effusion with respiratory effort, tachycardia, and presents with exhaustion and feeling overwhelmed. I am meeting with Shane for the first time, he is expressing appropriate concern regarding her being able to transition back home. She does have high care needs, now her functional status is worsening, she is mostly bedbound, nee ds maximum assist to reposition in bed, needs assistance with feeding, oral care, I would put her at a PPS of 30%. In the context of this I expressed my concern regarding patient's ability to tolerate further chemotherapy, he is quite focused on having the treatment done in the hospital, though have gently explained this is most likely is not going to be an option. Did discuss that often the burden of treatment can outweigh the benefit, and can actually hasten her decline. He very much wanted and from the oncologist, Dr. Copeland is only here on Mondays, agreed I would follow-up with him for his recommendations. Fortunately he was able to come down to the room, and a family conference regarding patient's progressive disease and worsening status was provided. He was able to review the scans and make recommendations. Social History - Living Situation Living arrangement: At home Living Situation: Alone Support System: Liana has shared that she and Shane have been together for 23 years. 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 He is presenting with sheer exhaustion, and with ongoing sadness appropriately so. 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 She does have 4 sons, did follow up with sister. One son is estranged, 2 live longer distances away but have been updated, and one son came to visit but was very difficult. Her sister has been providing support as well, she does find it frustrating as she is watching her decline and does understand the seriousness of her illness as well. Unfortunately she was not present for the conversation that ensued with Dr. Copeland the oncologist, Shane will update her. Patient has tried to stay positive, and keep a good attitude, though she has been fairly miserable with high symptom burden through the most of this. Though Shane does admit this is the worst that she has been. Medications/Allergies - Medications Active Medication List: Active Medications Digoxin (Lanoxin Inj) 250 mcg IVP DAILY [facility] Last Admin: 05/27/19 08:57 Dose: 250 mcg Enoxaparin Sodium (Lovenox) 80 mg SUBQ BID [facility] Last Admin: 05/27/19 08:47 Dose: 80 mg Famotidine (Pepcid) 20 mg IVP BID [facility] Last Admin: 05/27/19 08:47 Dose: 20 mg Promethazine HCl 25 mg/ Sodium (Chloride) 51 mls @ 100 mls/hr IV Q6H PRN PRN Reason: Nausea / Vomiting Multivitamins 10 ml/ Chromium/Copper/Manganese/Seleni/Zn 1 ml/ Amino Ac/Electrol/Dextrose /Calcium 2,011 mls @ 83 mls/hr IV Q24H [facility]; Protocol Stop: 05/27/19 18:59 Last Infusion: 05/26/19 22:39 Dose: 83 mls/hr Fat Emulsion Intravenous (Intralipid 20%) 250 mls @ 21 mls/hr IV Q24H [facility] Last Infusion: 05/27/19 06:56 Dose: Infused Fluconazole (Diflucan 200 Mg/100 Ml) 100 mls @ 100 mls/hr IV DAILY [facility] Last Infusion: 05/27/19 11:00 Dose: Infused Ceftriaxone Sodium 2 gm/ (Sodium Chloride) 100 mls @ 200 mls/hr IV Q24H [facility] Last Infusion: 05/26/19 19:59 Dose: Infused Sodium Chloride (Normal Saline 0.9%) 500 mls @ 0 mls/hr IV Q24H PRN PRN Reason: TKO RATE Last Admin: 05/27/19 01:38 Dose: 10 mls/hr Albumin Human (Albuminar-25) 12.5 gm in 50 mls @ 50 mls/hr IV DAILY [facility] Last Infusion: 05/27/19 10:08 Dose: Infused Multivitamins 10 ml/ Chromium/Copper/Manganese/Seleni/Zn 1 ml/ Sodium Chloride 30 meq/Potassium Chloride 20 meq/Amino Ac/Electrol/Dextrose/Calcium 2,028.5 mls @ 83.722 mls/hr IV Q24H [facility]; Protocol Lorazepam (Ativan Inj (Vial)) 0.5 mg IVP Q2H PRN PRN Reason: Anxiety OR NAUSEA Last Admin: 05/27/19 16:42 Dose: 0.5 mg Metoprolol Succinate (Toprol Xl) 25 mg PO BIDWM [facility] Last Admin: 05/27/19 10:36 Dose: Not Given Metoprolol Tartrate (Lopressor Inj) 5 mg IVP Q6HR PRN PRN Reason: Tachycardia Midodrine () 5 mg PO QID [facility] Last Admin: 05/27/19 14:44 Dose: 5 mg Morphine Sulfate (Morphine (Carpuject)) 1 mg IVP Q2HR PRN PRN Reason: PAIN Last Admin: 05/27/19 17:12 Dose: 1 mg Nystatin (Mycostatin) 5 ml PO QID [facility] Last Admin: 05/27/19 14:44 Dose: 5 ml Ondansetron HCl (Zofran Inj) 4 mg IVP Q4HR PRN PRN Reason: Nausea / Vomiting Last Admin: 05/27/19 01:53 Dose: 4 mg Pantoprazole Sodium (Protonix) 40 mg IVP BID [facility] Last Admin: 05/27/19 08:47 Dose: 40 mg Saliva Substitute (Biotene Moisturizing Mouth [place]) 2 sprays PO Q4H PRN PRN Reason: Dry mouth Last Admin: 05/27/19 01:42 Dose: 2 sprays Sodium Chloride (Normal Saline Flush 0.9%) 10 ml IVP PRN PRN PRN Reason: NEEDED PER PROVIDER ORDERS Last Admin: 05/27/19 01:39 Dose: 10 ml Sodium Chloride (Normal Saline Flush 0.9%) 10 ml IVP 0100,0900,1700 [facility] Last Admin: 05/27/19 08:47 Dose: 10 ml Spironolactone (Aldactone) 50 mg PO DAILY [facility] Last Admin: 05/27/19 11:00 Dose: Not Given Sucralfate (Carafate) 1 gm PO 0700,1100,1600,2200 [facility] Last Admin: 05/27/19 16:22 Dose: 1 gm HYDROmorphone [Dilaudid] 2 - 4 mg PO TID PRN 05/20/19 Naloxone HCl [Narcan] 1 spray ELIAN DAILY PRN 05/22/19 Nystatin 5 ml PO QID MDD 14 days 05/22/19 Ondansetron [Ondansetron Odt] 4 mg PO Q6HR PRN 05/22/19 Prochlorperazine Maleate 10 mg PO Q6HR PRN 05/22/19 polyethylene glycoL 3350 [Miralax] 17 gm PO DAILY PRN 05/22/19 Famotidine [Heartburn Prevention] 20 mg PO BID 05/23/19 Furosemide 40 mg PO DAILY 05/23/19 Gabapentin 300 mg PO TID PRN 05/23/19 Rivaroxaban [Xarelto] 15 mg PO .[id number] 05/23/19 Rivaroxaban [Xarelto] 20 mg PO DAILY 05/23/19 Spironolactone [Aldactone] 50 mg PO DAILY 05/23/19 - Allergies Allergies/Adverse Reactions: Allergies Allergy/AdvReac Type Severity Reaction Status Date / Time No Known Drug Allergies Allergy Verified 05/23/19 10:54 Review of Systems - Constitutional Constitutional: reports: Fatigue, Malaise, Weakness, Poor appetite - Eyes Eyes: reports: Blurred vision - Ears, Nose & Throat Ears, Nose & Throat: reports: Hoarseness, Mouth lesions, Dental decay, Dry mouth - Cardiovascular Cardiovascular: reports: Edema, Exertional dyspnea, Decr. exercise tolerance, Orthopnea - Respiratory Respiratory: reports: Orthopnea, SOB at rest, SOB with exertion - Gastrointestinal Gastrointestinal: reports: Abdominal pain (intermittent sharp shooting pains), Abdominal distention, Nausea, Vomiting (intermittent), Reflux/heartburn, Bloating, Poor appetite, Other (difficulty swallowing) - Genitourinary Genitourinary: reports: Other (has external wilson catheter) - Musculoskeletal Musculoskeletal: reports: Muscle aches, Stiffness, Limited range of motion, Muscle weakness, Other (has been bedbound since admit) - Integumentary Integumentary: reports: Dryness, Hair changes, Other (pressure ulcer) - Neurological Neurological: reports: General weakness, Memory problems, Slurred speech (difficult to understand) - Psychiatric Psychiatric: reports: Depression, Anxiety - Endocrine Endocrine: reports: Intolerance to heat - Hematologic/Lymphatic Hematologic/Lymphatic: reports: Anemia, Blood clots, Recurrent infections - All Other Systems All Other Systems: reports: Other (limited given patient's energy) Physical Exam - Vital Signs Vital Signs: Vital Signs x48h Temp Pulse Resp BP Pulse Ox 05/27/19 13:26 126 H 99/69 05/27/19 13:00 36.6 C 123 H 25 H 89/59 L 95 - Physical Exam General Appearance: positive: Moderate distress, Lethargic, Cachetic Eyes Bilateral: positive: Other (sunken orbits) ENT: positive: Oral lesions, Dry mucous membranes, Other (thickened yellow drainage/adherent white patches) Neck: positive: Trachea midline, Stiff neck Cardiovascular: positive: Tachycardia Respiratory: positive: Other (severe respiratory effort with conversation) Abdomen: positive: Abnml bowel sounds (distant BTs), Distended, Taut Skin: positive: Pallor, Dryness, Pressure wound Extremities: positive: Pedal edema (extended up into sacral area) Neurologic/Psychiatric: positive: Disoriented to time, Weakness, Slurred/abnml speech (mechanical), Depressed mood/affect, Flat affect Palliative Care - POLST POLST Status: DNR Pain: Pain worsening, Location (Patient reports abdominal pressure and disc omfort, sharp shooting pains. She also has pain from her pressure sore, and is difficulty getting comfortable with her severe ascites. She has been receiving small doses of morphine with some response, as in the past used [place] morphine. Patient demonstrates pain behaviors, scrimmaging difficulty turning difficulty tolerating bed mobility.) Tiredness/Fatigue: Severe (7-10) Drowsiness/Sedation: Moderate (4-6) Nausea: Severe (7-10) Anorexia: Severe (7-10) Dyspnea: Severe (7-10) Depression: Severe (7-10) Anxiety: Severe (7-10) Feelings of wellbeing/Perceived Quality of Life: Poor, Worsening Performance Status: She has had poor performance status even in transition home. But was able to ambulate short distances but poor activity tolerance. They have been using a wheelchair for longer distance, she does have a walker at home. She has been mostly bedbound since she has been here, with limited by both dyspnea, fatigue, and her abdominal ascites making it difficult to reposition or balance. - Palliative Care Discussion: Initial conversation with Shane, Sister Los, and Liana. Patient quite fatigued and difficulty participating but was present and able to be part of the conversation. Shane is feeling given her current state, and her increasing care needs, is unsure he can care for her continuously at home. He is still trying to work, he is primary caregiver. He has been supplemented with some assistance from [place]. We did discuss in the context of a bridge as far as gapping caregiving, patient has just changed to new insurance, we discussed the limitations particularly given her high symptom burden, still receiving TPN, her high care needs about where her insurance might be accepted and if they would accept her in the context of her where she is at physically. We did discuss regarding pending chemotherapy, I did express my concerns regarding if we would be causing more harm than good, and recommended that I follow-up with Dr. Copeland the oncologist who was available today. In consult with Dr. Copeland, reviewed findings, patient's functional decline, ongoing malignant ascites. Discussed how best to help patient and significant other and understanding the dire current situation, as far as the chemotherapy given her current status would most likely hasten her demise and lead to an early . He was able to come down to the floor, please see his consult note, but did share with him and her his concerns, if she were to return to a functional status able to walk around, and her ascites was under control which he shared very gently most likely not. That he expected her to have a fairly short prognosis of weeks, and recommended she return home with hospice and get her affairs in order. Shane is appropriately tearful, Liana was fairly overwhelmed and quiet. I did provide support after conversation, we discussed need some time to process this information. There are some legal matters and paperwork that need to get urgently taking care of, recommended they work on this is soon as possible. Agreed we did meet tomorrow again, to further discuss a plan of care and transition plan. Adding to the complexity is that she is on TPN, hospice will most likely not accept her on TPN, and unclear if she is ready to give this up. She is current on home health, so she could continue with home health and palliative care support that this is not ideal. Shane had also expressed in a previous conversation his caregiving fatigue, she may benefit from a transition plan in another setting. They had expressed interest in [place] or for down go in [employer]. Results - Lab Results Lab results reviewed: Yes Fish Bones: 05/27/19 05:20 05/27/19 05:20 Lab and Imaging Results: Lab Results x24hrs 05/27/19 05/27/19 05/27/19 Range/Units 05:40 05:20 05:20 WBC 9.2 (4.8-10.8) x10^3/uL RBC 2.99 L (4.20-5.40) 10^6/uL Hgb 9.1 L (12.0-16.0) g/dL Hct 27.8 L (37.0-47.0) % MCV 93.0 (81.0-99.0) fL MCH 30.4 (27.0-31.0) pg MCHC 32.7 (32.0-36.0) g/dL RDW 16.6 H (12.0-15.0) % Plt Count 125 L (130-450) 10^3/uL MPV 12.8 H (7.9-10.8) fL Neut # (Auto) 8.0 H (1.5-6.6) 10^3/uL Lymph # (Auto) 0.6 L (1.5-3.5) 10^3/uL Mckenzie # (Auto) 0.3 (0.0-1.0) 10^3/uL Eos # (Auto) 0.0 (0.0-0.7) 10^3/uL Baso # (Auto) 0.0 (0.0-0.1) 10^3/uL Absolute Nucleated RBC 0.03 x10^3/uL Nucleated RBC % 0.3 /100WBC Sodium 133 L (135-145) mmol/L Potassium 3.3 L (3.5-5.0) mmol/L Chloride 105 (101-111) mmol/L Carbon Dioxide 18 L (21-32) mmol/L Anion Gap 10.0 (6-13) BUN 29 H (6-20) mg/dL Creatinine 0.7 (0.4-1.0) mg/dL Estimated GFR (MDRD) 86 L (>89) Glucose 142 H (70-100) mg/dL POC Whole Bld Glucose (70 - 100) mg/dL Calcium 7.3 L (8.5-10.3) mg/dL Phosphorus 3.4 (2.5-4.6) mg/dL Magnesium 2.1 (1.7-2.8) mg/dL Total Bilirubin 0.3 (0.2-1.0) mg/dL AST 19 (10-42) IU/L ALT 15 (10-60) IU/L Alkaline Phosphatase 114 (42-121) IU/L C-Reactive Protein 13.2 H (0-1.0) mg/dL Total Protein 4.6 L (6.7-8.2) g/dL Albumin 1.8 L (3.2-5.5) g/dL Globulin 2.8 (2.1-4.2) g/dL Albumin/Globulin Ratio 0.6 L (1.0-2.2) Triglycerides 176 H ( - 149) mg/dL 05/26/19 Range/Units 06:04 WBC (4.8-10.8) x10^3/uL RBC (4.20-5.40) 10^6/uL Hgb (12.0-16.0) g/dL Hct (37.0-47.0) % MCV (81.0-99.0) fL MCH (27.0-31.0) pg MCHC (32.0-36.0) g/dL RDW (12.0-15.0) % Plt Count (130-450) 10^3/uL MPV (7.9-10.8) fL Neut # (Auto) (1.5-6.6) 10^3/uL Lymph # (Auto) (1.5-3.5) 10^3/uL Mckenzie # (Auto) (0.0-1.0) 10^3/uL Eos # (Auto) (0.0-0.7) 10^3/uL Baso # (Auto) (0.0-0.1) 10^3/uL Absolute Nucleated RBC x10^3/uL Nucleated RBC % /100WBC Sodium (135-145) mmol/L Potassium (3.5-5.0) mmol/L Chloride (101-111) mmol/L Carbon Dioxide (21-32) mmol/L Anion Gap (6-13) BUN (6-20) mg/dL Creatinine (0.4-1.0) mg/dL Estimated GFR (MDRD) (>89) Glucose (70-100) mg/dL POC Whole Bld Glucose 147 H (70 - 100) mg/dL Calcium (8.5-10.3) mg/dL Phosphorus (2.5-4.6) mg/dL Magnesium (1.7-2.8) mg/dL Total Bilirubin (0.2-1.0) mg/dL AST (10-42) IU/L ALT (10-60) IU/L Alkaline Phosphatase (42-121) IU/L C-Reactive Protein (0-1.0) mg/dL Total Protein (6.7-8.2) g/dL Albumin (3.2-5.5) g/dL Globulin (2.1-4.2) g/dL Albumin/Globulin Ratio (1.0-2.2) Triglycerides ( - 149) mg/dL Impression and Recommendations - Palliative Care Impression: This is a 58-year-old woman who presents with advanced ovarian cancer, now with acute decline and failure to thrive. She has recurrent and worsening malignant ascites, worsening right pleural effusion with respiratory compromise, follow- up with oncology reviews patient's disease is not improving or responding to chemotherapy and currently not a candidate unless functional status improves. She is appropriately distraught, and discouraged, as is her significant other Shane. Patient presents with high symptom burden, functional decline, and wo rsening disease. She would be appropriate for hospice transition, but given her current state on TPN, at this adds to the complexity of decision making. Will revisit patient's goals of care after patient and significant other have a chance to process information. Recommendations/Counseling Done: 1. Failure to thrive. This is multifactorial in origin, but worsening disease state, high symptom burden, and functional decline reflect concern for poor prognosis. Patient has been advised by oncology to consider transition to hospice, recognizing chemotherapy in this setting could actually hasten her demise. This is a difficult information for both the patient and significant other to simulate, will continue to explore goals of care tomorrow. 2. Dyspnea. Patient is benefiting from low doses of morphine, would consider increasing offering 1 to 2 mg of IV push morphine for breathlessness. Counseling provided and instruction regarding the role of morphine for managing breathlessness and discomfort. This is worsening most likely related to her right pleural effusion, given her low albumin and recurrent ascites, most likely would reaccumulate. There is most likely not a good answer in the context of decisions at this point in time, though if she were worsening she may benefit for acute temporary relief. 3. Depression. This is a very difficult situation, with several layers of complexity particularly around coping and family. Counseling provided regarding normal grief and loss process, and will continue to explore this patient processed this information. 4. Advanced care planning. Shane reports he do have D POA documents, but there are other components that need to be completed. Recommended to the obtain after school counselor or information as quick as possible, given patient's declining status. Original conversation had explored patient's placement, given her high care needs, will reexplore in the context of goals of care. The complexity of this will include whether to continue TPN. Though in the context of her processing fluids, she is most likely third spacing most of what she is receiving, and adding to her discomfort. We will continue to work with patient and Shane regarding goals of care in preparation for end-of-life. Time Spent: 75 minutes with greater than 50% of this done in counseling, family conference, coordination of care with oncology and hospitalist team, we will follow-up with patient tomorrow.
--- NOTE | 2019-05-27 18:15 | PROVIDER PROGRESS NOTE ---
Subjective - Prog Note Date Prog Note Date: 05/27/19 Prog Note Time: 18:05 - Subjective Pt reports feeling: Worse Subjective: Shane remains at the bedside tearful tonight. He agrees with removing telemetry, but wants to let the TPN going. He requests that her pain medication be adjusted up as she continues to gasp for air, and is now having more emesis. Mindy plans to visit again tomorrow to assist with end of life care plans. Current Medications - Current Medications Current Medications: Active Medications: Enoxaparin Sodium (Lovenox) 80 mg SUBQ BID [facility] Famotidine (Pepcid) 20 mg IVP BID [facility] Multivitamins 10 ml/ Chromium/Copper/Manganese/Seleni/Zn 1 ml/ Amino Ac/Electrol/Dextrose /Calcium 2,011 mls @ 83 mls/hr IV Q24H ROSAMARIA; Protocol Fat Emulsion Intravenous (Intralipid 20%) 250 mls @ 21 mls/hr IV Q24H [facility] Multivitamins 10 ml/ Chromium/Copper/Manganese/Seleni/Zn 1 ml/ Sodium Chloride 30 meq/Potassium Chloride 20 meq/Amino Ac/Electrol/Dextrose/Calcium 2,028.5 mls @ 83.722 mls/hr IV Q24H [facility]IA; Protocol Lorazepam (Ativan Inj (Vial) 0.5 mg IVP Q2H PRN Metoprolol Tartrate (Lopressor Inj) 5 mg IVP Q6HR PRN Midodrin 5 mg PO QID [facility] Morphine Sulfate (Morphine (Carpuject)1 mg IVP Q2HR PRN Nystatin (Mycostatin 5 ml PO QID [facility] Ondansetron HCl (Zofran Inj) 4 mg IVP Q4HR PRN Pantoprazole Sodium (Protonix) 40 mg IVP BID [facility] Saliva Substitute (Biotene Moisturizing Mouth [place]) 2 sprays PO Q4H PRN HOME meds: HYDROmorphone [Dilaudid] 2 - 4 mg PO TID PRN 05/20/19 Naloxone HCl [Narcan] 1 spray ELIAN DAILY PRN 05/22/19 Nystatin 5 ml PO QID MDD 14 days 05/22/19 Ondansetron [Ondansetron Odt] 4 mg PO Q6HR PRN 05/22/19 Prochlorperazine Maleate 10 mg PO Q6HR PRN 05/22/19 polyethylene glycoL 3350 [Miralax] 17 gm PO DAILY PRN 05/22/19 Famotidine [Heartburn Prevention] 20 mg PO BID 05/23/19 Furosemide 40 mg PO DAILY 05/23/19 Gabapentin 300 mg PO TID PRN 05/23/19 Rivaroxaban [Xarelto] 15 mg PO .[id number] 05/23/19 Rivaroxaban [Xarelto] 20 mg PO DAILY 05/23/19 Spironolactone [Aldactone] 50 mg PO DAILY 05/23/19 Objective - Vital Signs/Intake & Output Reviewed Vital Signs: Yes Vital Signs: Vital Signs x48h Temp Pulse Resp BP Pulse Ox 05/27/19 13:26 126 H 99/69 05/27/19 13:00 36.6 C 123 H 25 H 89/59 L 95 Intake & Output: Intake & Output 05/24/19 05/25/19 05/26/19 05/27/19 23:59 23:59 23:59 23:59 Intake Total 3595.017 4585 3863.000 1163.9 Output Total 1630 5375 350 Balance 4619.109 1522 -1512.000 813.9 - Objective General Appearance: positive: Alert, Severe distress, Lethargic Eyes Bilateral: positive: No lid inflammation, Other (suncken, dark circles around eyes, very little fat tissue on face, respiratory distress related to pleural effusions) Eyes: OU Conjunctivae pale ENT: positive: Pharyngeal erythema, Oral lesions, Dry mucous membranes Neck: positive: Trachea midline, Stiff neck Respiratory: positive: Rhonchi Cardiovascular: positive: Tachycardia, JVD present, Systolic murmur Abdomen: positive: Tenderness, Guarding, Hepatomegaly, Other (tympanic, soft, tender) Skin: positive: No rash, Warm, Dry, Decubitus (bilateral buttocks), Other (bronze, jaundice (slight), poor overall skin) Extremities: positive: Pedal edema (pitting BLEs, profound abdominal edema), Joint swelling Neurologic/Psychiatric: positive: Disoriented to time, Weakness, Sensory loss, Slurred/abnml speech (difficulty with speaking since dry mouth, poor condition of oral mucosa), Depressed mood/affect - Lab Results Fish Bones: 05/27/19 05:20 03/02/20 05:20 Other Labs: Lab Results x24hrs 05/27/19 05/27/19 05/27/19 Range/Units 05:40 05:20 05:20 WBC 9.2 (4.8-10.8) x10^3/uL RBC 2.99 L (4.20-5.40) 10^6/uL Hgb 9.1 L (12.0-16.0) g/dL Hct 27.8 L (37.0-47.0) % MCV 93.0 (81.0-99.0) fL MCH 30.4 (27.0-31.0) pg MCHC 32.7 (32.0-36.0) g/dL RDW 16.6 H (12.0-15.0) % Plt Count 125 L (130-450) 10^3/uL MPV 12.8 H (7.9-10.8) fL Neut # (Auto) 8.0 H (1.5-6.6) 10^3/uL Lymph # (Auto) 0.6 L (1.5-3.5) 10^3/uL Winn # (Auto) 0.3 (0.0-1.0) 10^3/uL Eos # (Auto) 0.0 (0.0-0.7) 10^3/uL Baso # (Auto) 0.0 (0.0-0.1) 10^3/uL Absolute Nucleated RBC 0.03 x10^3/uL Nucleated RBC % 0.3 /100WBC Sodium 133 L (135-145) mmol/L Potassium 3.3 L (3.5-5.0) mmol/L Chloride 105 (101-111) mmol/L Carbon Dioxide 18 L (21-32) mmol/L Anion Gap 10.0 (6-13) BUN 29 H (6-20) mg/dL Creatinine 0.7 (0.4-1.0) mg/dL Estimated GFR (MDRD) 86 L (>89) Glucose 142 H (70-100) mg/dL POC Whole Bld Glucose (70 - 100) mg/dL Calcium 7.3 L (8.5-10.3) mg/dL Phosphorus 3.4 (2.5-4.6) mg/dL Magnesium 2.1 (1.7-2.8) mg/dL Total Bilirubin 0.3 (0.2-1.0) mg/dL AST 19 (10-42) IU/L ALT 15 (10-60) IU/L Alkaline Phosphatase 114 (42-121) IU/L C-Reactive Protein 13.2 H (0-1.0) mg/dL Total Protein 4.6 L (6.7-8.2) g/dL Albumin 1.8 L (3.2-5.5) g/dL Globulin 2.8 (2.1-4.2) g/dL Albumin/Globulin Ratio 0.6 L (1.0-2.2) Triglycerides 176 H ( - 149) mg/dL 05/26/19 Range/Units 06:04 WBC (4.8-10.8) x10^3/uL RBC (4.20-5.40) 10^6/uL Hgb (12.0-16.0) g/dL Hct (37.0-47.0) % MCV (81.0-99.0) fL MCH (27.0-31.0) pg MCHC (32.0-36.0) g/dL RDW (12.0-15.0) % Plt Count (130-450) 10^3/uL MPV (7.9-10.8) fL Neut # (Auto) (1.5-6.6) 10^3/uL Lymph # (Auto) (1.5-3.5) 10^3/uL Winn # (Auto) (0.0-1.0) 10^3/uL Eos # (Auto) (0.0-0.7) 10^3/uL Baso # (Auto) (0.0-0.1) 10^3/uL Absolute Nucleated RBC x10^3/uL Nucleated RBC % /100WBC Sodium (135-145) mmol/L Potassium (3.5-5.0) mmol/L Chloride (101-111) mmol/L Carbon Dioxide (21-32) mmol/L Anion Gap (6-13) BUN (6-20) mg/dL Creatinine (0.4-1.0) mg/dL Estimated GFR (MDRD) (>89) Glucose (70-100) mg/dL POC Whole Bld Glucose 147 H (70 - 100) mg/dL Calcium (8.5-10.3) mg/dL Phosphorus (2.5-4.6) mg/dL Magnesium (1.7-2.8) mg/dL Total Bilirubin (0.2-1.0) mg/dL AST (10-42) IU/L ALT (10-60) IU/L Alkaline Phosphatase (42-121) IU/L C-Reactive Protein (0-1.0) mg/dL Total Protein (6.7-8.2) g/dL Albumin (3.2-5.5) g/dL Globulin (2.1-4.2) g/dL Albumin/Globulin Ratio (1.0-2.2) Triglycerides ( - 149) mg/dL ABX Reporting Has patient been on IV antibiotics over the past 48 hours?: No Assessment/Plan - Problem List (1) Intractable nausea and vomiting Impression: -Status post SBO, required an NG tube at [place] -Thought to be due to abdominal carcinomatosis -Status post bedside paracentesis on Monday05/26/2019 with General surgery, which was helpful in symptom management -Consider permanent pleura-vac (abdominal drainage) -Treating with Zofran, Promethazine IV, getting her TPN continuous -Offer IV lorazepam for nausea -No further labs, likely stopping TPN tomorrow after meeting with Mindy Hickey End of life care -Dr. Copeland, Oncology came to the patient's room this afternoon upon request to give poor prognosis -Patient is not a candidate of upcoming chemo, as it will end her life -Patient and her significant other needs time to absorb such news -Mindy, Palliative care will plan another visit tomorrow 05/27 to finalize end of life plans -Still running TPN, symptom management, telemetry stopped, oral meds stopped Esophagitis -Known erosive esophagitis since at least daily vomiting which has been prolonged -Previously had an NG tube, refuses on this admit -Resumed Nystatin swish and swallow per patient request -Status post IV diflucan, which improved symptoms Leukocytosis -WBC counts were elevated, now trending down to normal at 8.8 -Patient at a risk for SBP spontaneous bacterial peritonitis -Likely no further treatments, no further labs after poor prognosis was given this afternoon Abdominal pain -Patient notes bilateral low abdominal pain, cramping, sharp, intermittent -Last had a paracentesis on 05/25 at the bedside with Dr. Hewitt (General surgery), 5L off -Profound abdominal girth enlargement, tight skin, tenderness with palpation, which has been causing more nausea today Hypotension -Echo shows a normal EF, intravascular depletion -Patient had a liquid stool, emesis since admission -Poor urine output, likely intravascular dryness -Tolerating midodrine, increased to QID -Monitor for improvement Normocytic anemia -Patient notes she has iron deficiency anemia -Status post IV iron, IM B12 injection on 05/24 -H/H trending down, now 8.8/26.6, likely influenced by fluid status -Patient denies any blood transfusions while at [place], not opposed to blood transfusions if needed -No obvious bleeding, continues on BID lovenox for full anticoagulation GERD -Patient complains of burning in her esophagus from all the vomiting -Was prescribed sucralfate, PPI and H2 vernell while at [place] -Patient did not pick remover the sucralfate after discharge from [place] due to very high $$$cost per Mindy Hickey -Continues on protonix and Pepcid IV -Patient not tolerating PO meds, so PO meds are stopped, except midodrine -Continue meds, monitor for improvement Metastatic ovarian cancer -Dr. Copeland at Oncology [facility] [place] -Treated with carboplatin and Taxol -Follow ups with Dr. Scott after the 3rd chemo cycle -Dr. Copeland, came to the patient's room today to give poor prognosis -Mindy Hickey is visiting again tomorrow to finalize end of life care -No further chemo, as it would likely end her life Severe protein calorie malnutrition -TPN via PICC with home health nursing -Nutrition consult to manage TPN while in this hospital -TPN with fat emolsion per dietitian, continuous -No further labs are indicated, likely will stop TPN in the AM Chronic anticoagulation -Xarelto was started prior to discharge from [place] -Not tolerating PO, continues on therapeutic Lovenox at 80 mg BID -Will continue here, hopefully she can tolerate since she has been vomiting -Likely will stop all anticoagulation in the AM Liver cirrhosis from alcoholism -Ascites is NOT thought to be from liver, rather malignant -Patient notes that she had abdominal swelling since before finding out about her cancer, but thought it was just part of getting older -Paracentesis was 05/25, 5L off Below the elbow amputation -Presented on 03/21/2019 to [facility] with left hand ischemia -Status post embolectomy x2, but had ongoing ischemic issues -Surgical removal of limb on 03/28/2019 -Hypercoagulability likely due to high-grade ovarian cancer with malignant ascites -Lovenox on a 12 hour hold for paracentesis 05/25
[2019-05-27] MEDS ORDERED: [UNRECOGNIZED DRUG - OTHER] IV SCH ×5 (19:00)
[2019-05-27] MEDS ORDERED: MULTIVITAMIN IV SCH ×5 (19:00)
[2019-05-27] MEDS ORDERED: TPN IV SCH ×5 (19:00)
[2019-05-27] MEDS ORDERED: TRACE ELEMENTS V IV SCH ×5 (19:00)
[2019-05-27] MEDS: FAT EMULSION 20% 250 ML IV SCH (19:12)
[2019-05-27 19:55] VITALS: BP 99/72
[2019-05-28] MEDS: MORPHINE 2 MG/ML CARPUJECT IVP PRN ×3 (02:58→17:16)
[2019-05-28] MEDS: SALIVA STIMULANT SPRAY 44.3 ML BOTTLE PO PRN ×2 (03:02→06:08)
[2019-05-28] MEDS: LORazepam 2 MG/ML VIAL IVP PRN ×6 (06:05→20:54)
[2019-05-28] MEDS: FAMOTIDINE 20 MG/2 ML VIAL IVP SCH ×2 (09:18→20:58)
[2019-05-28] MEDS: NYSTATIN 500000 UNITS/5 ML UDC PO SCH ×4 (09:19→20:57)
[2019-05-28] MEDS: SODIUM CHLORIDE FLUSH 0.9% 10 ML SYRINGE IVP PRN (09:19)
[2019-05-28] MEDS: PANTOPRAZOLE 40 MG VIAL IVP SCH ×2 (09:19→21:02)
[2019-05-28] MEDS: SODIUM CHLORIDE FLUSH 0.9% 10 ML SYRINGE IVP SCH ×3 (09:19→21:07)
[2019-05-28] MEDS: ENOXAPARIN 80 MG/0.8 ML SYRINGE SUBQ SCH (10:28)
[2019-05-28] MEDS: MIDODRINE 2.5 MG TABLET PO SCH (10:28)
--- NOTE | 2019-05-28 12:54 | PROVIDER PROGRESS NOTE ---
Subjective - Prog Note Date Prog Note Date: 05/28/19 - Subjective Pt reports feeling: Worse Subjective: pt present less wakeful, more lethargic, and her condition became more worsening. Pt's DPOA report he will discuss with Mindy, palliative care, for next care plan. After Mindy discussed with pt and pt's DPOA, pt's DPOA agreed the following plan: hospice care on tomorrow, d/c TPN, and wish pt has another paracentesis before pt d/c for hospice care, focus on comfortable measure. Current Medications - Current Medications Current Medications: Active Medications Famotidine (Pepcid) 20 mg IVP BID [facility] Last Admin: 05/28/19 09:18 Dose: 20 mg Lorazepam (Ativan Inj (Vial)) 0.5 mg IVP Q2H PRN PRN Reason: Anxiety OR NAUSEA Last Admin: 05/28/19 12:09 Dose: 0.5 mg Metoprolol Tartrate (Lopressor Inj) 5 mg IVP Q6HR PRN PRN Reason: Tachycardia Morphine Sulfate (Morphine (Carpuject)) 2 mg IVP Q1HR PRN PRN Reason: PAIN Last Admin: 05/28/19 09:19 Dose: 2 mg Nystatin (Mycostatin) 5 ml PO QID [facility] Last Admin: 05/28/19 12:17 Dose: Not Given Ondansetron HCl (Zofran Inj) 4 mg IVP Q4HR PRN PRN Reason: Nausea / Vomiting Last Admin: 05/27/19 18:08 Dose: 4 mg Pantoprazole Sodium (Protonix) 40 mg IVP BID [facility] Last Admin: 05/28/19 09:19 Dose: 40 mg Saliva Substitute (Biotene Moisturizing Mouth [place]) 2 sprays PO Q4H PRN PRN Reason: Dry mouth Last Admin: 05/28/19 06:08 Dose: 2 sprays Sodium Chloride (Normal Saline Flush 0.9%) 10 ml IVP PRN PRN PRN Reason: NEEDED PER PROVIDER ORDERS Last Admin: 05/28/19 09:19 Dose: 40 ml Sodium Chloride (Normal Saline Flush 0.9%) 10 ml IVP 0100,0900,1700 [facility] Last Admin: 05/28/19 09:19 Dose: 10 ml HYDROmorphone [Dilaudid] 2 - 4 mg PO TID PRN 05/20/19 Naloxone HCl [Narcan] 1 spray ELIAN DAILY PRN 05/22/19 Nystatin 5 ml PO QID MDD 14 days 05/22/19 Ondansetron [Ondansetron Odt] 4 mg PO Q6HR PRN 05/22/19 Prochlorperazine Maleate 10 mg PO Q6HR PRN 05/22/19 polyethylene glycoL 3350 [Miralax] 17 gm PO DAILY PRN 05/22/19 Famotidine [Heartburn Prevention] 20 mg PO BID 05/23/19 Furosemide 40 mg PO DAILY 05/23/19 Gabapentin 300 mg PO TID PRN 05/23/19 Rivaroxaban [Xarelto] 15 mg PO .[id number] 05/23/19 Rivaroxaban [Xarelto] 20 mg PO DAILY 05/23/19 Spironolactone [Aldactone] 50 mg PO DAILY 05/23/19 Objective - Vital Signs/Intake & Output Reviewed Vital Signs: Yes Intake & Output: Intake & Output 05/25/19 05/26/19 05/27/19 05/28/19 23:59 23:59 23:59 23:59 Intake Total 4585 3863.000 3720.414 185.95 Output Total 5375 350 100 Balance 4585 -3394.045 2693.414 85.95 - Lab Results Fish Bones: 05/27/19 05:20 05/27/19 05:20 Other Labs: Lab Results x24hrs 05/27/19 Range/Units 05:40 Triglycerides 176 H ( - 149) mg/dL ABX Reporting Has patient been on IV antibiotics over the past 48 hours?: No Assessment/Plan - Problem List (1) Ascites, malignant Impression: pt present extended abdomen again. pt had paracentesis two day ago. pt's DPOA hope pt has another paracentesis before d/c for hospice care. order abdomen paracentesis, called US tech, she stated radiologist in biopsy and she will let radiologist know and hope pt can be done for paracentesis on t ronal. I also called and consulted with surgeon for this matter. End of life care pt's condition deteriorated today, more SOB and tachycardia, less awake and more lethargy. Mindy discussed with pt and pt's DPOA DPOA agreed hospice care, focus on comfortable measure, and d/c TPN hospice is referred. Metastatic ovarian cancer pt has multiple hospital admission recently, required frequent paracentesis for her ascites. pt's oncologist already saw pt on yesterday, and recommend hospice care for pt. DPOA agreed hospice care, focus on comfortable measure continue pain control and comfortable care Hypotension likely caused by Metastatic cancer, ascites, physiological decompensation. DPOA agree to have hospice care and comfortable measure Chronic anticoagulation hold Xarelto, pt will have paracentesis, continue hospice care and comfortable measure. Liver cirrhosis from alcoholism pt has hx of cirrhosis with hx of alcoholism, and has ascites, and required frequent paracentesis. 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 continue comfortable measure and hospice care. hold Xarelto for paracentesis.
--- NOTE | 2019-05-28 13:12 | CONSULTATION NOTE ---
Palliative Care Follow Up - Referral Referring Provider: Aliza GARCIA Time of Visit: 9867-8946 Referral setting: Hospitalized patient Referral Reason: Met Ovarian CA/Goals of Care - Information Sources Records reviewed: Previous records reviewed History/Review of Systems obtained from: Family (Shane at bedside) Exam limitations: Clinical condition (patient lethargic unable to focus; present for visit) - History of Present Illness Update Brief HPI Update: Please see HPI 3/ for more extensive history. Patient is continued to deteriorate. She is less wakeful, more lethargic. Having more difficulty with tachypnea and tachycardia. Her abdomen is quite taut and uncomfortable, she is requiring morphine 2 mg for relief of both breathlessness and pain. She presents with respiratory effort, she does have oxygen, she is not able to speak more than a couple words. She does arouse and able to focus at times. At this point in time it does appear she is imminently transitioning to end-of-life. I am meeting with Shane who is her D POA, regarding decision making for end-of-life plan. They are trying to wrap up her affairs, she did have a will she had already done, but had not printed out and got notarized or signed. Please see palliative care discussion regarding goals of care, and decision to transition to comfort and discharged with hospice Social History - Living Situation Living arrangement: At home Living Situation: Alone Support System: Patient significant other Shane, is at the bedside. Quite tearful and feeling somewhat overwhelmed. We did discuss in the context of decision making, patient no longer able to really participate, he is able to answer yes or no questions, and is able to grasp the severity of the situation. Medications/Allergies - Medications Active Medication List: Active Medications Famotidine (Pepcid) 20 mg IVP BID [facility] Last Admin: 05/28/19 09:18 Dose: 20 mg Lorazepam (Ativan Inj (Vial)) 0.5 mg IVP Q2H PRN PRN Reason: Anxiety OR NAUSEA Last Admin: 05/28/19 12:09 Dose: 0.5 mg Metoprolol Tartrate (Lopressor Inj) 5 mg IVP Q6HR PRN PRN Reason: Tachycardia Morphine Sulfate (Morphine (Carpuject)) 2 mg IVP Q1HR PRN PRN Reason: PAIN Last Admin: 05/28/19 09:19 Dose: 2 mg Nystatin (Mycostatin) 5 ml PO QID [facility] Last Admin: 05/28/19 12:17 Dose: Not Given Ondansetron HCl (Zofran Inj) 4 mg IVP Q4HR PRN PRN Reason: Nausea / Vomiting Last Admin: 05/27/19 18:08 Dose: 4 mg Pantoprazole Sodium (Protonix) 40 mg IVP BID [facility] Last Admin: 05/28/19 09:19 Dose: 40 mg Saliva Substitute (Biotene Moisturizing Mouth [place]) 2 sprays PO Q4H PRN PRN Reason: Dry mouth Last Admin: 05/28/19 06:08 Dose: 2 sprays Sodium Chloride (Normal Saline Flush 0.9%) 10 ml IVP PRN PRN PRN Reason: NEEDED PER PROVIDER ORDERS Last Admin: 05/28/19 09:19 Dose: 40 ml Sodium Chloride (Normal Saline Flush 0.9%) 10 ml IVP 0100,0900,1700 [facility] Last Admin: 05/28/19 09:19 Dose: 10 ml HYDROmorphone [Dilaudid] 2 - 4 mg PO TID PRN 05/20/19 Naloxone HCl [Narcan] 1 spray ELIAN DAILY PRN 05/22/19 Nystatin 5 ml PO QID MDD 14 days 05/22/19 Ondansetron [Ondansetron Odt] 4 mg PO Q6HR PRN 05/22/19 Prochlorperazine Maleate 10 mg PO Q6HR PRN 05/22/19 polyethylene glycoL 3350 [Miralax] 17 gm PO DAILY PRN 05/22/19 Famotidine [Heartburn Prevention] 20 mg PO BID 05/23/19 Furosemide 40 mg PO DAILY 05/23/19 Gabapentin 300 mg PO TID PRN 05/23/19 Rivaroxaban [Xarelto] 15 mg PO .[id number] 05/23/19 Rivaroxaban [Xarelto] 20 mg PO DAILY 05/23/19 Spironolactone [Aldactone] 50 mg PO DAILY 05/23/19 - Allergies Allergies/Adverse Reactions: Allergies Allergy/AdvReac Type Severity Reaction Status Date / Time No Known Drug Allergies Allergy Verified 05/23/19 10:54 Review of Systems - Constitutional Constitutional: reports: Fatigue, Weight gain (with fluid). denies: Fever, Chills - Eyes Eyes: reports: Vision loss - Ears, Nose & Throat Ears, Nose & Throat: reports: Hearing loss, Hoarseness, Mouth lesions, Dental decay, Dry mouth - Cardiovascular Cardiovascular: reports: Edema - Respiratory Respiratory: reports: Orthopnea, SOB at rest, SOB with exertion - Gastrointestinal Gastrointestinal: reports: Abdominal pain, Abdominal distention, Nausea (has taken a few bites, but gagging and uncomfortable with abdominal pressure), Ref lux/heartburn, Bloating - Genitourinary Genitourinary: reports: Other (has external catheter) - Musculoskeletal Musculoskeletal: reports: Back pain, Muscle aches, Stiffness, Limited range of motion, Muscle weakness, Other (has been bedbound since here) - Integumentary Integumentary: reports: Dryness, Nail changes, Hair changes (thinning from chemo), Other (known decub) - Neurological Neurological: reports: General weakness, Memory problems, Slurred speech (difficulty talking) - Psychiatric Psychiatric: reports: Depression, Anxiety - Endocrine Endocrine: reports: Intolerance to heat - Hematologic/Lymphatic Hematologic/Lymphatic: reports: Anemia - All Other Systems All Other Systems: reports: Reviewed and negative Physical Exam - Physical Exam General Appearance: positive: Moderate distress, Lethargic Eyes Bilateral: positive: Other (eyes sunken) ENT: positive: Dry mucous membranes, Other (thickened plaques in mouth;) Neck: positive: Trachea midline Cardiovascular: positive: Tachycardia Respiratory: negative: No respiratory distress (patient with respiratory effort; shallow breaths; RR 32) Abdomen: positive: Abnml bowel sounds, Tenderness, Distended, Taut Skin: positive: Pallor, Dryness, Pressure wound (known decub) Extremities: positive: Pedal edema Neurologic/Psychiatric: positive: Weakness, Unintelligible speech (yes / nos), Flat affect Palliative Care - POLST Patient has POLST: Yes POLST Status: DNR, Comfort Measures (completed with Shane at visit) Pain: Pain worsening (tautness across abdomen) Tiredness/Fatigue: Severe (7-10) Drowsiness/Sedation: Severe (7-10) Nausea: Severe (7-10) Anorexia: Severe (7-10) Dyspnea: Severe (7-10) Depression: Moderate (4-6) Anxiety: Severe (7-10) Feelings of wellbeing/Perceived Quality of Life: Poor, Worsening Performance Status: Patient bedbound PPS 20% - Palliative Care Discussion: Lengthy discussion with DPOAShad and significant other Shane. In agreement the TPN should be discontinued, does not want her suffering prolonged, and does recognize it is no longer supporting her. We also discussed that will make her more comfortable without further third spacing of the fluid into her lungs and abdomen. Counseling provided regarding hospice and the hospice benefit, the bigger picture question was where should patient go. She does live in a smaller trailer, will be a challenge to get her into her bedroom. We discussed the hospital bed does come apart, but they could do a lift assist with the paramedics delivering her. He had also thought about his place, but that would not be "her home". He does not perceive that she would want to be anywhere else but home, and we did discuss prognosis is mostly likely days versus weeks. He does not identify anyone else who can come and be a primary caregiver or provide caregiver support. She does have her sister Los, who works in [place], but does not know her availability. We did discuss if we get her Cash catheter, the only other component as far as personal care that cannot be covered by hospice would be if she were to have a bowel movement. We did discuss that would be less and less likely for this to happen. He has assisted her with some personal care in this last few weeks. Patient has another sister, though there is some estrangement between them, she is coming to say her goodbyes. His son also is coming this afternoon. Shane is appropriately tearful, and asking appropriate questions He did ask her if she wanted to go home or to his place, it does feel like she wants to go home. We will proceed on that assumption. In the context of getting her more comfortable, we discussed the benefits and burdens of a paracentesis, given the tightness of her belly and her difficulty with breathing, I suspect she would be more comfortable if we tapped her again. We did complete the POLST as DNA R and comfort measures. They are trying to complete her final wishes and will, we are waiting the form as far as what other kind of support they might need. I have contacted Jeremy from hospice who is a notary, but Tad in admin is as well can notarize. Results - Lab Results Lab results reviewed: Yes Fish Bones: 05/27/19 05:20 05/27/19 05:20 Lab and Imaging Results: Lab Results x24hrs 05/27/19 Range/Units 05:40 Triglycerides 176 H ( - 149) mg/dL Impression and Recommendations - Palliative Care Impression: This is a 58-year-old woman who presents with stage IV metastatic ovarian cancer, who continues to deteriorate, the goals have been identified to transition to comfort and not to prolong suffering. Patient presents with high s ymptom burden, recurrent severe malignant ascites, known right pleural effusion, and decision has been made to withdraw TPN. Palliative care assisting with defining goals, and transitioning to comfort care with the plan to discharge home with hospice support. Recommendations/Counseling Done: 1. Pain of neoplastic origin. This is multifactorial with multiple pain generat ors. Her most significant discomfort is with her taut abdomen, causing increased pressure. She does have sharp shooting pains deep in her abdomen as well. Most likely gas and pressure from her ascites. Patient has been receiving morphine 2 mg intermittently, both for pain and dyspnea. We are awaiting the arrival of her legal documents, but pain is poorly controlled on examination. Would recommend at this point in time, transition her to a fentanyl 12 mcg patch, with Roxanol 0.25 mls = 5 mg available every 2 hours. Continue with IV morphine 2 mg available for symptoms of distress. But given plan to transition home would recommend using oral morphine to be able to evaluate effectiveness. 2. Malignant Ascites. Counseling and conversation regarding weighing benefits and burdens of proceeding with paracentesis prior to discharge planned for tomorrow. Patient would most likely benefit from decreased abdominal pressure, given we are stopping the TPN hopefully may be more long-lasting of benefit. Hospice is able if needed to do a paracentesis in the home if indicated. Consult with hospitalist will order with DI or surgery. Shane still distressed with last paracentisis, reassured that was malfunctioning vacummn bottle not technique, that will not happen again. 3. Stage IV ovarian cancer. Unfortunately patient has continued to deteriorate, she is no longer a candidate for further treatment, and expected with poor prognosis of days versus weeks. In the context of this, it was agreed to stop her TPN, as it is causing more burden than benefit. Goals of care conversation with final outcome for transition to comfort measures and hospice on discharge. 4. Advanced care planning. Counseling provided regarding the hospice benefit, both limitations as well as support available. Encouraged to consider who else may be part of their caregiving team, as this will not be a long extended process. Coordination of care regarding equipment needs including hospital bed, over the bed table, oral suction, wheelchair, and oxygen. POLST was completed with goals to focus on comfort and DNA R. No further antibiotics or nutritional support. At this point in time admit scheduled for tomorrow afternoon, equipment to be delivered to patient's trailer, patient will need BLS transfer and may need lift assist as hallways are narrow and Shane worried about gurney getting her through there. Did order wheelchair, they could put her in that if needed. 1515 Call from Shane regarding interaction with interventional radiologist about and hospice placement and options. Discussed in the context of patient's current situation, she does not meet the criteria for GIP, but certainly we can continue to explore what might be some other options if he is feeling like he can take her home, in the and the conversation ended up with having the hospice medical technicians Dr. Antony participate in introducing himself, and also exploring whether patient met criteria. Patient is quite fragile, may be transitioning more imminently, and can reevaluate first thing in the morning. Otherwise the outcome of their meeting will be a discharge to his home versus her home which mitigate some of the barriers that he was concerned about. They are going to go ahead and get the fentanyl patch going, as well as place a Cash. Time Spent: 60 minutes with greater than 50% of this done in counseling regarding hospice benefit, goals of care, coordination of care with hospital team and hospice team. Fatoumata dietitiflora did reach out to [facility] to tell them regarding decision around transition to comfort care. Plan to evaluate first thing in the morning regarding transition "home" to [place].
[2019-05-28] MEDS ORDERED: BUFFERED LIDOCAINE 10 ML SYRINGE ONE (13:48)
[2019-05-28] MEDS ORDERED: BUFFERED LIDOCAINE 10 ML SYRINGE IU ONE (15:42)
--- NOTE | 2019-05-28 16:23 | Ultrasound Report ---
Reason: palliative care measure, ascites Procedure Date: 05/28/2019 Accession Number: [id number] / [id number] Procedure: US - Abdominal Paracentesis CPT Code: Final Report FULL RESULT: EXAM: ULTRASOUND-GUIDED PARACENTESIS EXAM DATE: 05/28/2019 03:39 PM. CLINICAL HISTORY: Palliative care measure, ascites. COMPARISON: None. TECHNIQUE: Risks, benefits, and alternatives to the procedure were discussed with the patient. All questions answered. Written and verbal consent obtained. Patient was placed in the supine position and the skin overlying the ascites marked with sonographic guidance. The skin was sterilely prepped and draped, and 1% buffered lidocaine was used for local anesthesia. An 18-gauge Yueh was advanced into the peritoneal ascites and fluid aspirated. Upon completion, the catheter was removed. FINDINGS: A total of 1700 mL of fluid was removed without immediate complication. Ascites is noted to be highly loculated. Patient tolerated procedure well. IMPRESSION: Ultrasound-guided paracentesis without immediate complications. RADIA
[2019-05-28] MEDS ORDERED: fentaNYL 12 MCG PATCH TOP SCH (18:00)
[2019-05-29] MEDS: LORazepam 2 MG/ML VIAL IVP PRN ×4 (01:25→13:02)
[2019-05-29] MEDS: SODIUM CHLORIDE FLUSH 0.9% 10 ML SYRINGE IVP SCH ×2 (01:30→09:45)
[2019-05-29] MEDS: MORPHINE 2 MG/ML CARPUJECT IVP PRN ×3 (03:38→07:56)
[2019-05-29] MEDS: SODIUM CHLORIDE FLUSH 0.9% 10 ML SYRINGE IVP PRN ×2 (03:38→06:16)
[2019-05-29] MEDS ORDERED: LORazepam 2 MG/ML VIAL IVP STA (08:11)
[2019-05-29] MEDS: NYSTATIN 500000 UNITS/5 ML UDC PO SCH ×2 (08:59→12:23)
[2019-05-29] MEDS ORDERED: MORPHINE SOL 10 MG/0.5 ML SYRINGE PO PRN (09:27)
[2019-05-29] MEDS: FAMOTIDINE 20 MG/2 ML VIAL IVP SCH (09:44)
[2019-05-29] MEDS: PANTOPRAZOLE 40 MG VIAL IVP SCH (09:44)
--- NOTE | 2019-05-29 10:08 | CONSULTATION NOTE ---
Palliative Care Follow Up - Referral Referring Provider: Aliza GARCIA Time of Visit: [id number] Referral setting: Hospitalized patient Referral Reason: Met Ovarian CA/EOL Care - Information Sources Records reviewed: Previous records reviewed History/Review of Systems obtained from: Family (Shane and his son Robbie at bedside) Exam limitations: Clinical condition (patient none responsive) - History of Present Illness Update Brief HPI Update: This is a 58-year-old woman with metastatic ovarian cancer, widespread peritoneal carcinomatosis since 02/2019. She had initially been hospitalized for almost 2 months on and off, with frequent paracentesis, the goal had been in hope to provide neoadjuvant chemotherapy in attempt to impact the disease. She did have severe malignant ascites, which continues to be problematic, she did get tapped yesterday for less than 2 L. Given patient's ongoing functional d ecline, high symptom burden, and decline attributed to her disease, it was no longer feasible to continue treatment, And transition to comfort status occurred yesterday. Fortunately we did have a chance to have a inpatient consult with Dr. Copeland, who is able to confirm patient's disease was progressing and no meaningful response, though this is quite difficult news, it did allow for family to make decisions regarding prioritizing her comfort and end-of-life care. Patient did have a difficult day yesterday, needed to hold off on medications, to be able to complete her will and her end-of-life documents. Family reported she was quite restless through the night, though today on presentation after morphine and Lorazepam patient is resting comfortably. She does appear quite frail, her pulse is thready, they were able to place a wilson catheter in preparation for transition to "home" at [facility] this afternoon. Social History - Living Situation Living arrangement: Other (patient discharging to s/o's home) Support System: Patient significant other Shane, is at the bedside, they have been together greater than 23 years. Is grieving appropriately, and hoping her suffering will not be prolonged. His son Robbie, is going to be able to provide support, as well as her sister Los is transitioning home for end-of-life care Medications/Allergies - Medications Active Medication List: Active Medications Famotidine (Pepcid) 20 mg IVP BID [facility] Last Admin: 05/29/19 09:44 Dose: 20 mg Fentanyl (Duragesic) 1 patch TOP Q3D [facility] Last Admin: 05/28/19 17:16 Dose: 1 patch Lorazepam (Ativan Inj (Vial)) 0.5 mg IVP Q2H PRN PRN Reason: Anxiety OR NAUSEA Last Admin: 05/29/19 06:46 Dose: 0.5 mg Metoprolol Tartrate (Lopressor Inj) 5 mg IVP Q6HR PRN PRN Reason: Tachycardia Morphine Sulfate (Roxanol) 5 mg PO Q4HR PRN PRN Reason: PAIN Nystatin (Mycostatin) 5 ml PO QID [facility] Last Admin: 05/29/19 08:59 Dose: Not Given Ondansetron HCl (Zofran Inj) 4 mg IVP Q4HR PRN PRN Reason: Nausea / Vomiting Last Admin: 05/27/19 18:08 Dose: 4 mg Pantoprazole Sodium (Protonix) 40 mg IVP BID [facility] Last Admin: 05/29/19 09:44 Dose: 40 mg Saliva Substitute (Biotene Moisturizing Mouth [place]) 2 sprays PO Q4H PRN PRN Reason: Dry mouth Last Admin: 05/28/19 06:08 Dose: 2 sprays Sodium Chloride (Normal Saline Flush 0.9%) 10 ml IVP PRN PRN PRN Reason: NEEDED PER PROVIDER ORDERS Last Admin: 05/29/19 06:16 Dose: 10 ml Sodium Chloride (Normal Saline Flush 0.9%) 10 ml IVP 0100,0900,1700 [facility] Last Admin: 05/29/19 09:45 Dose: 10 ml HYDROmorphone [Dilaudid] 2 - 4 mg PO TID PRN 05/20/19 Naloxone HCl [Narcan] 1 spray ELIAN DAILY PRN 05/22/19 Nystatin 5 ml PO QID MDD 14 days 05/22/19 Ondansetron [Ondansetron Odt] 4 mg PO Q6HR PRN 05/22/19 Prochlorperazine Maleate 10 mg PO Q6HR PRN 05/22/19 polyethylene glycoL 3350 [Miralax] 17 gm PO DAILY PRN 05/22/19 Famotidine [Heartburn Prevention] 20 mg PO BID 05/23/19 Furosemide 40 mg PO DAILY 05/23/19 Gabapentin 300 mg PO TID PRN 05/23/19 Rivaroxaban [Xarelto] 15 mg PO .[id number] 05/23/19 Rivaroxaban [Xarelto] 20 mg PO DAILY 05/23/19 Spironolactone [Aldactone] 50 mg PO DAILY 05/23/19 - Allergies Allergies/Adverse Reactions: Allergies Allergy/AdvReac Type Severity Reaction Status Date / Time No Known Drug Allergies Allergy Verified 05/23/19 10:54 Review of Systems - Eyes Eyes: reports: Other (patient with eyes closed) - Ears, Nose & Throat Ears, Nose & Throat: reports: Dental decay, Dry mouth - Cardiovascular Cardiovascular: reports: Edema - Respiratory Respiratory: reports: Other (tachypnea) - Gastrointestinal Gastrointestinal: reports: Other (no intake) - Genitourinary Genitourinary: reports: Other (wilson placed this am) - Musculoskeletal Musculoskeletal: reports: Muscle weakness, Other (patient has been bedbound) - Integumentary Integumentary: reports: Dryness, Other (known pressure ulcer) - All Other Systems All Other Systems: reports: Other (limited ROS) Physical Exam - Physical Exam General Appearance: positive: Nonresponsive Eyes Bilateral: positive: Other (eyes sunken; closed) ENT: positive: Oral lesions, Dry mucous membranes Neck: positive: Trachea midline Cardiovascular: positive: Tachycardia, Other (pulse weak and thready) Respiratory: positive: Other (respiratory rate up but appears tolerating and comfortable;) Abdomen: positive: Distended, Taut (had only small amount relieved with paracentesis; softer with out fluid running) Skin: positive: Pallor, Dryness, Pressure wound (not examined; mepliex in place) Extremities: positive: Pedal edema (lessening) Neurologic/Psychiatric: positive: Other (nonresponsive; some restlessness; family perceived patient had difficult night) Palliative Care - POLST Patient has POLST: Yes POLST Status: DNR, Comfort Measures Pain: Comment (patient with fentanyl 12 mcg patch on; using MS 2 mg used 3 times over night; appears effective this am; will use Roxanol as transitioning home with hospice) - Palliative Care Discussion: Met with Shane and his son Robbie. Getting the last of arrangements with equipment expected later this morning/early afternoon. They have not made arrangements, do know she wants to be cremated. Recommended to move forward on arrangements, reviewed some resources, as will need to have decided at her passing. Shane and Robbie shared they had just been through the of his dad 7-8 months ago, and aware of all the complexity and just how much needs to be done after the passing, as well as the stress and experience he went through. He would like to ride in the ambulance with her, discussed prognosis is hours to days, her father and stepmother coming from [place] this w/e, not sure they will get her in time. Her older sister came yesterday. Robbie is planning to be off work and support his dad. Results - Lab Results Fish Bones: 05/27/19 05:20 05/27/19 05:20 Impression and Recommendations - Palliative Care Impression: This is a 58-year-old woman who presents with stage IV metastatic ovarian cancer with extensive carcinomatosis. Goals have been made to transition to comfort, not to prolong suffering, and she is discharging this afternoon with hospice support. Palliative care assisting with transition to comfort and plan for discharge. Recommendations/Counseling Done: 1. Pain of neoplastic origin. This is multifactorial with multiple pain generators. She is receiving IV morphine, they are to transition to Roxanol 5 mg, nurse will provide guidance and evaluate effectiveness. She does have a fentanyl 12 mcg patch on may need to titrate this up. Counseling provided regarding alternative ways to administer medication if needed. 2. Malignant ascites. Patient has stopped TPN, abdomen is still quite distended and taut, hopefully will reabsorb and continue to decrease discomfort. 3. Advanced care planning. Answered questions and counseling regarding hospice team, equipment to be delivered this afternoon, patient will have BLS transfer. Shane would like to accompany her in the ambulance, arrangements have been made for this. POLST has been completed with DNR and comfort meds, discussion regarding plans and arrangements, and acknowledgment grief and loss. Time Spent: 45 minutes with greater than 50% of this done in counseling regarding anticipatory guidance, coordination of care with hospitalist and hospice team.
[2019-05-29] MEDS ORDERED: MORPHINE 2 MG/ML CARPUJECT IVP PRN (10:13)
--- NOTE | 2019-05-29 11:59 | Discharge Plan ---
Discharge Plan Problem Reviewed?: Yes Disposition: 50 Hospice/Home DC/Xfer Condition: Critical Prescriptions: LORazepam [Ativan] 0.5 mg PO Q6H PRN #10 tablet PRN Reason: Agitation Morphine Sulfate [Morphine Sulf Oral (Roxanol)] 5 mg PO Q4H PRN #30 ml PRN Reason: Pain/Dyspnea Diet: Soft Instruction Topics: Lorazepam tablets, Morphine oral solution, Hospice Health Concerns: hospice Plan of Treatment: you may followup hospice care Care Goals: comfortable and followup hospice care Assessment: discussed with your DPOA for the care plan, he understood and agreed the care plan and hospice care. Additional Instructions or Follow Up instructions: you may followup hospice care after you are arrival to the home No Smoking: If you smoke, Please STOP! Call for help. Follow-up with: Carlos Rodriguez MD [Primary Care Provider] -
--- NOTE | 2019-05-29 15:18 | DISCHARGE SUMMARY ---
"Discharge Summary Admit Date: 05/23/19 Discharge Date: 05/29/19 Discharging Provider: Mann Vann Primary Care Provider: Dr. Rodriguez Condition at Discharge: Critical Discharge Disposition: 50 Hospice/Home DC/Xfer Discharge Facility Name: home - DIAGNOSES Admission Diagnoses: (1) Intractable nausea and vomiting GERD Metastatic ovarian cancer Severe protein calorie malnutrition Chronic anticoagulation Liver cirrhosis from alcoholism - Below the elbow amputation Discharge Diagnoses with Status of Each Condition: hospice care pt's DPOA choose hospice care for pt at his home. pt's oncologist recommended hospice care for pt as well. hospice team will followup Ascites, malignant CT of abdomen reveals large ascites and large mass in the abdomen. pt had twice paracentesis at hospital. large mass is at pt's abdomen, likely from metastatic ovarian cancer. pt's medical condition deteriorate rapidly in the hospital. pt's DPOA chose hospice care for pt. followup hospice care unresponsive pt present unresponsive now. pt's medical condition deteriorate rapidly in the hospital. pt's DPOA chose hospice care for pt. followup hospice care Metastatic ovarian cancer pt had hx of metastatic ovarian cancer and had frequent hospital visit recently. pt's medical condition deteriorate rapidly in the hospital. pt's DPOA chose hospice care for pt. followup hospice care Unilateral at right large pleural effusion pt's DPOA chose hospice care for pt, and chose no further intervention for pt. followup hospice care Hypotension pt's medical condition deteriorate rapidly in the hospital, and developed hypotension. pt's DPOA chose hospice care for pt. followup hospice care Liver cirrhosis from alcoholism pt's DPOA chose hospice care for pt. followup hospice care Chronic anticoagulation hold meds, followup hospice care Below the elbow amputation chronic - HPI History of Present Illness: refer from Ms. 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 The patient was brought to the ED via EMS after her home health nurse was unable to get a blood pressure and for uncontrolled vomiting which has been for at least one week. Labs show an elevated WBC count of 19.8, H/H of 10/31.2, BUN 38, creatinine of 0.6, glucose 121, phosphorus 5.2, total protein 5.5, albumin 1.7, lipase 20, without any other abnormalities. Vital signs show HR 120s, B/P 92/67, temp 36.3 C, room air. The patient complains of vomiting up bile, sore throat as if something is stuck in her throat, intermittent headaches, soreness to her buttocks, shortness of breath, and slight dizziness. She denies chest pain, bleeding, confusion, or rashes. - CONSULTS | PROCEDURES Consultations: Ms. Mindy Jefferson, Dr. Antony, Dr. Hakan Copeland Procedures: palliative care and hospice care, and oncologist consult - HOSPITAL COURSE Hospital Course: pt was admitted for unable to get a blood pressure and uncontrolled vomiting. pt has hx of metastatic ovarian cancer, abdominal carcinomatosis, recurrent ascites requiring frequent paracentesis. CT of abdomen reveals large mass and large ascites. pt had twice paracentesis in the hospital course. pt developed hypotension and unresponsive. pt's oncologist Dr. Hakan Copeland consulted for pt. Dr. Copeland recommended hospice for pt. pt's DPOA chose hospice care for pt and d/ c TPN. pt was d/c to DPOA's home for hospice care. Dr. Antony accepted pt for hospice care. The detail hospital course is as the following. hospice care pt's DPOA choose hospice care for pt at his home. pt's oncologist recommended hospice care for pt as well. hospice team will followup Ascites, malignant CT of abdomen reveals large ascites and large mass in the abdomen. pt had twice paracentesis at hospital. large mass is at pt's abdomen, likely from metastatic ovarian cancer. pt's medical condition deteriorate rapidly in the hospital. pt's DPOA chose hospice care for pt. followup hospice care unresponsive pt present unresponsive now. pt's medical condition deteriorate rapidly in the hospital. pt's DPOA chose hospice care for pt. followup hospice care Metastatic ovarian cancer pt had hx of metastatic ovarian cancer and had frequent hospital visit recently. pt's medical condition deteriorate rapidly in the hospital. pt's DPOA chose hospice care for pt. followup hospice care Unilateral at right large pleural effusion pt's DPOA chose hospice care for pt, and chose no further intervention for pt. followup hospice care Hypotension pt's medical condition deteriorate rapidly in the hospital, and developed hypotension. pt's DPOA chose hospice care for pt. followup hospice care Liver cirrhosis from alcoholism pt's DPOA chose hospice care for pt. followup hospice care Chronic anticoagulation hold meds, followup hospice care Below the elbow amputation chronic - ALLERGIES Allergies/Adverse Reactions: Allergies Allergy/AdvReac Type Severity Reaction Status Date / Time No Known Drug Allergies Allergy Verified 05/23/19 10:54 - MEDICATIONS Home Medications: Ambulatory Orders Medication Instructions Recorded Confirmed HYDROmorphone [Dilaudid] 2 - 4 mg PO TID PRN 05/20/19 05/23/19 Naloxone HCl [Narcan] 1 spray ELIAN DAILY PRN 05/22/19 05/23/19 Nystatin 5 ml PO QID MDD 14 days 05/22/19 05/23/19 Ondansetron [Ondansetron Odt] 4 mg PO Q6HR PRN 05/22/19 05/23/19 Prochlorperazine Maleate 10 mg PO Q6HR PRN 05/22/19 05/23/19 polyethylene glycoL 3350 [Miralax] 17 gm PO DAILY PRN 05/22/19 05/23/19 Famotidine [Heartburn Prevention] 20 mg PO BID 05/23/19 05/23/19 Furosemide 40 mg PO DAILY 05/23/19 05/23/19 Gabapentin 300 mg PO TID PRN 05/23/19 05/23/19 Rivaroxaban [Xarelto] 15 mg PO .[id number] 05/23/19 05/23/19 Rivaroxaban [Xarelto] 20 mg PO DAILY 05/23/19 05/23/19 Spironolactone [Aldactone] 50 mg PO DAILY 05/23/19 05/23/19 LORazepam [Ativan] 0.5 mg PO Q6H PRN #10 tablet 05/29/19 Morphine Sulfate [Morphine Sulf 5 mg PO Q4H PRN #30 ml 05/29/19 Oral (Roxanol)] - PHYSICAL EXAM AT DISCHARGE General Appearance: positive: No acute distress, Lethargic Eyes Bilateral: positive: Normal inspection ENT: positive: ENT inspection nml, No signs of dehydration Neck: positive: Nml inspection, Thyroid nml, Trachea midline Respiratory: positive: Chest non-tender Cardiovascular: positive: Irregularly irregular, Tachycardia Peripheral Pulses: positive: 1+ Abdomen: positive: Abnml bowel sounds. negative: No organomegaly, No distention Skin: positive: Color nml, Dry Extremities: positive: Non-tender Neurologic/Psychiatric: negative: Facial droop - LABS Result Diagrams: 05/27/19 05:20 05/27/19 05:20 - FOLLOW UP Follow Up: followup hospice care in the home - TIME SPENT Time Spent in Discharge (Minutes): 30"
--- NOTE | 2019-05-29 15:18 | ADVANCE CARE PLANNING NOTE ---
Advance Care Planning - Planning Encounter Date: 05/29/19 Time: 09:00 Purpose: advance care plan for pt Parties in Attendance: pt's DPVIRGEN, [place], and me Decisional Capacity of the Patient: pt is lethargic and unresponsive. pt's DPVIRGEN Lynn make the decision. - Diagnosis for Encounter (2) Metastatic malignant neoplasm to ovary Qualifiers: Laterality: unspecified laterality Qualified Code(s): C79.60 - Secondary malignant neoplasm of unspecified ovary - Encounter Subjective/Patient's Story: pt present unresponsive today. pt has recently multiple hospital admission for her progressive and metastatic ovarian cancer, ischemic and clots on her upper extremity, and s/p of upper extremity amputation. Patient has had a CT scan on , unfortunately compared to previous CT abdominal and pelvis scans, shows a large right pleural effusion, and at that point a large amount of free fluid, omental caking and mesenteric studding with no improvement and most likely worsening. She appears quite frail, gaunt, upper extremity wasting and temporal wasting. She also has lower extremity edema, her abdomen despite being tapped yesterday for 4 L, is taut and uncomfortable. She is symptomatic from her right pleural effusion with respiratory effort, tachycardia, and presents with exh austion and feeling overwhelmed. pt had another abdominal tapped on yesterday with about 1.4 liter of fluid draw out. pt became more lethargic, now pt is unresponsive. At this point pt's [place] CHAN chose hospice care for pt. 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 Goals of Care: advance care plan and end of life care Plan: d/c today with hospice care in [facility] home Code Status: Do Not Attempt Resuscitation Time spent on advance care plannin
== END 2019-05-29 13:10 | disposition hospice, home (50) | DRG 947 ==
LOC: ED 10:40 → MS2 15:23 → OBSVTOIN 05-25 14:36
PROVIDERS: ADMIT Nurse Practitioner; ATTEND Nurse Practitioner Gerontology
PROC: 0W9G3ZZ Drainage of Peritoneal Cavity, Percutaneous Approach (ICD-10-PCS; principal; 2019-05-28)
DX: R18.0 Malignant ascites (principal); E43 Unspecified severe protein-calorie malnutrition; R40.20 Unspecified coma; C56.9 Malignant neoplasm of unspecified ovary; C80.0 Disseminated malignant neoplasm, unspecified; J90 Pleural effusion, not elsewhere classified; D68.59 Other primary thrombophilia; B37.0 Candidal stomatitis; K56.609 Unspecified intestinal obstruction, unspecified as to partial versus complete obstruction; G89.3 Neoplasm related pain (acute) (chronic); K21.0 Gastro-esophageal reflux disease with esophagitis; Z68.29 Body mass index [BMI] 29.0-29.9, adult; K70.30 Alcoholic cirrhosis of liver without ascites; I95.9 Hypotension, unspecified; D72.829 Elevated white blood cell count, unspecified; R19.7 Diarrhea, unspecified; I10 Essential (primary) hypertension; F32.9 Major depressive disorder, single episode, unspecified; J44.9 Chronic obstructive pulmonary disease, unspecified; D64.81 Anemia due to antineoplastic chemotherapy; T45.1X5A Adverse effect of antineoplastic and immunosuppressive drugs, initial encounter; Y92.531 Health care provider office as the place of occurrence of the external cause; D50.9 Iron deficiency anemia, unspecified; F10.21 Alcohol dependence, in remission; G62.9 Polyneuropathy, unspecified; G47.00 Insomnia, unspecified; R25.1 Tremor, unspecified; H54.7 Unspecified visual loss; J32.9 Chronic sinusitis, unspecified; R35.0 Frequency of micturition; Z74.01 Bed confinement status; Z51.5 Encounter for palliative care; Z66 Do not resuscitate; R62.7 Adult failure to thrive; Z79.01 Long term (current) use of anticoagulants; Z79.899 Other long term (current) drug therapy; Z86.79 Personal history of other diseases of the circulatory system; Z87.891 Personal history of nicotine dependence; Z89.2 Acquired absence of upper limb above wrist; L89.90 Pressure ulcer of unspecified site, unspecified stage
CPT/HCPCS: 36415; 49083; 74018; 74176; 80053; 80162; 81003; 82140; 83605; 83690; 83735; 84100; 84478; 85025; 85610; 86140; 87040; 87205; 93005; 93306; 96361; 96365; 96366; 96367; 96368; 96372; 96375; 96376; 99232; 99233; 99285; A9270; G0378; J1170; J1650; J2060; J2916; J2997; J3490; J7040; P9047; 81001; 87086; 89051

== ENCOUNTER 2019-05-29 13:09 | Outpatient (CLI) | payer BC, MEDICAID | END 2019-05-29 13:10 | disposition home or self-care (01) | LOC: EMS 13:09 | PROVIDERS: ATTEND Surgery | DX: C56.9 Malignant neoplasm of unspecified ovary (principal); R53.1 Weakness; R41.82 Altered mental status, unspecified; Z74.01 Bed confinement status | CPT/HCPCS: A0425; A0428 ==